=== PATIENT | female | born 2005 | race Caucasian/White ===

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

== ENCOUNTER 2024-03-13 18:11 | Outpatient (REF) | payer OTHER, SELFPAY ==
--- OUTSIDE RECORDS SUMMARY | 2024-03-13 18:14 | XMS_ITS | Encounter Summary ---
[place] [address] Care Team Providers Care Fisher Trap Name Role Phone Unknown Primary Care Provider Unavailabl e Encounter Details Date Type Department Care Team (Late st Contact Info) Description 02/17/2022 Notes [place] [id number] Edward Begum, RN Social History Tobacco Use Types Packs/Day Years Used Date Smoking Tobacco: Never Smokeless Tobacco: Never Comments:NO SMOKERS IN THE H OME Sex and Gender Information Value Date Recorded Sex Assigned at Female 02/08/2023 12:59 PM EST Gender Identity Female 02/08/2023 12:59 PM EST Sexual Orientation Straight 02/08/2023 12 :59 PM EST documented as of this encounter Progress Notes * Edward Begum, RN - 02/17/2022 7:57 AM EST Gutierrezo report available and printed from [facility] documented in this encounter Plan of Treatment Not on file documented as of this encounter Visit Diagnoses Not on filedocumented in this encounter Care Teams Fisher Trap Relationship Specialty Start Date End Date Unknown None PCP - General 06/21/21 10/10/22 documented as of this encounter
--- OUTSIDE RECORDS SUMMARY | 2024-03-13 18:14 | XMS_ITS | Encounter Summary ---
[place] [address] Care Team Providers Care Electrician Locomotive Name Role Phone Leonard Green MD, Bong Primary Care Provider [phone] Encounter Details Date Type Department Care Team (Late st Contact Info) Description 06/29/2016 [place] [phone] Social History Tobacco Use Types Packs/Day Years Used Date Smoking Tobacco: Never Comments:NO SMOKERS IN THE H OME Sex and Gender Information Value Date Recorded Sex Assigned at Female 02/08/2023 12:59 PM EST Gender Identity Female 02/08/2023 12:59 PM EST Sexual Orientation Straight 02/08/2023 12 :59 PM EST documented as of this encounter Plan of Treatment Not on file documented as of this encounter Procedures Procedure Name Priority Date/Time Associated Diagnosis Comments ECG SCAN Routine 06/29/2016 ECG SCAN Routine 06/29/2016 documented in this encounter Results * Scan Doc: ECG (06/29/2016) Historical Provider MEDIA MGR SCAN EX T ORDR/RSLT * Scan Doc: ECG (06/29/2016) Historical Provider MEDIA MGR SCAN EX T ORDR/RSLT documented in this encounter Visit Diagnoses Not on filedocumented in this encounter Care Teams Electrician Locomotive Relationship Specialty Start Date [place] [address] PCP - General 12/28/09 10/04/16 documented as of this encounter
--- OUTSIDE RECORDS SUMMARY | 2024-03-13 18:14 | XMS_ITS | Encounter Summary ---
[place] [address] Care Team Providers Care Team Primary Care Physician Name Role Phone Unknown Primary Care Provider Unavailabl e Encounter Details Date Type Department Care Team (Late st Contact Info) Description 01/17/2022 Notes Only [place] [phone] Edward Begum, RN Social History Tobacco Use [...] Progress Notes * Edward Begum, RN - 01/17/2022 10:34 AM EST Rosa Perez is here today for application of a Zio heart monitor. Zio patch was applied to patient while in clinic as per the manufacture's guidelines/instructions after insurance coverage was confirmed. After observing the blinking green light, indicating the unit was operating, I reviewed the use of the Zio patch. The parent/patient was then able to press the event button, parents could verbalize when to be recording events in the diary, and avoiding immersion in water (but showers OK). The parent/patient was instructed to keep the monitor on for the full 14 days and to return it in the shipping box provided. Reasons to call [employer] were reviewed as was their phone number. Explained that the final report would be ready approximately two weeks after it was received at the company. Parent/patient state understanding. Registration completed. documented in this encounter Plan of Treatment Not on file documented as of this encounter Visit Diagnoses Not on filedocumented in this encounter Care Teams Team Primary Care Physician Relationship Specialty Start Date End Date Unknown None PCP - General 06/21/21 10/10/22 documented as of this encounter
--- OUTSIDE RECORDS SUMMARY | 2024-03-13 18:14 | XMS_ITS | Encounter Summary ---
Author Organization [facility] Address [address] [place] [address] Care Team Providers Care Charity Fundraiser Name Role Phone Bong Valle MD Primary Care Provider Dennis dia Encounter Details Date Type Department Care Team (Late st Contact Info) Description 06/15/2022 Lab Requisition [facility] Pathology & Laboratory Medicine - [facility] [address], [place] [phone] Outr Resulting Lab, Provider Social History Tobacco Use Types Packs/Day Years Used Date Smoking Tobacco: Never Assessed Comments Unknown Sex and Gender Information Value Date Recorded Sex Assigned at Not on file Legal Sex Female 18:51 EST Gender Identity Not on file Sexual Orientation Not on file documented as of this encounter Plan of Treatment Not on file documented as of this encounter Procedures Procedure Name Priority Date/Time Associated Diagnosis Comments CHLAMYDIA/N. GONORRHOEAE AMPLIFIED NUCLEIC ACID Routine 06/14/2022 15:00 EDT documented in this encounter Results * CHLAMYDIA/N. GONORRHOEAE AMPLIFIED RNA (06/14/2022 15:00 EDT) Neisseria gonorrhoeae Result Negative Negative 06/16/2022 13:20 EDT [facility] Chlamydia trachomatis Result Negative Negative 06/16/2022 13:20 EDT [facility] Urine URINE / Unknown 06/14/2022 1 5:00 EDT 06/15/2022 18:52 EDT Narrative [facility] - 06/16/2022 13:20 EDT A first catch urine specimen is acceptable for detection of Gonorrhea and Chlamydia, but might detect up to 10% fewer infections when compared with vaginal and endocervical swab samples. us Provider Outr Resulting Lab MICROBIOLOGY - GENER AL ORDERABLES Final Result [facility] [address] [place] [id number] documented in this encounter Visit Diagnoses Not on filedocumented in this encounter Care Teams Charity Fundraiser Relationship Specialty Start Date End Date Bong Valle MD PCP - General 02/21/10 documented as of this encounter
--- OUTSIDE RECORDS SUMMARY | 2024-03-13 18:14 | XMS_ITS | Encounter Summary ---
Author Organization [facility] [place] [address] Care Team Providers Care Scaffolder Name Role Phone Leonard Green MD, Brando Primary Care Provider [phone] Reason for Visit * Reason Comments Tachycardia * Consultation (Routine) - Closed Specialty Diagnoses / Procedures Referred By Irene dunbar Referred To Contact Pediatric Cardiology Diagnoses INTERMITTENT SYMPTOMATIC TACHYCARDIA Zeenat Hernandez MD [address] [place] [phone] [facility] Pedi Cardiology [address] [place] [phone] Referral ID Status Reason Start Date Expiration Date V isits Requested Visits Authorized [id number] Closed Consult, [facility] 10/05/2015 10/04/2016 1 1 Encounter Details Date Type Department Care Team (Late st Contact Info) Description 10/19/2015 9:30 AM EDT Office Visit [place] [phone] Chris Buchanan MD Tachycardia; Palpitations Social History Tobacco Use Types Packs/Day Years Used Date Smoking Tobacco: Never Comments:NO SMOKERS IN THE H OME Sex and Gender Information Value Date Recorded Sex Assigned at Female 02/08/2023 12:59 PM EST Gender Identity Female 02/08/2023 12:59 PM EST Sexual Orientation Straight 02/08/2023 12 :59 PM EST documented as of this encounter Last Filed Vital Signs Vital Sign Reading Time Taken Comments Blood Pressure 115/46 10/19/2015 9:56 AM EDT Pulse 77 10/19/2015 9:48 AM EDT Temperature - - Respiratory Rate - - Oxygen Saturation 100% 10/19/2015 9:48 AM EDT Inhaled Oxygen Concentration - - Weight 67.4 kg (148 lb 9.4 oz) 10/19/2015 9:48 A M EDT Height 160.3 cm (5' 3.11) 10/19/2015 9:48 AM ED T Body Mass Index 26.23 10/19/2015 9:48 AM EDT Body Mass Index Percentile 96.83% 10/19/2015 9:4 8 AM EDT Growth Chart: [facility] (Girls, 2- 20 Years) documented in this encounter Patient Instructions * Patient Instructions* Chris Buchanan MD - 10/19/2015 9:30 AM EDT Rosa appears normal from the cardiovascular standpoint with no evidence for heart disease. The electrocardiogram today is normal and is reassuring Palpitations are a common symptom, and most often are due to feeling a normal heart that may be beating harder or more rapidly than expected. The purpose of the evaluation today was to determine if Rosa's palpitations are from a normal or an abnormal rhythm. By far the most common abnormal fast rhythm in children is supraventricular tachycardia (SVT). Fortunately this arrhythmia, even when present, is not a dangerous problem. With no evidence for underlying heart disease, any other arrhythmia would not be expected. I cannot completely rule out the possibility that she is having episodes of SVT, and some aspects of the history do suggest SVT. Althoughrecording Rosa's rhythm during an episode of palpitations would be informative, it would not likely change the medical management. Even if SVT were documented I would not recommend medical therapy for these infrequent and self-limiting episodes of tachycardia. Given the infrequent occurrence of pa lpitations, an attempt to record the rhythm when symptomatic would not likely be useful. Additional evaluation would be warranted if Rosa develops syncope or more frequent, prolonged or bothersome episodes of palpitations. documented in this encounter Progress Notes * Chris Buchanan MD - 10/19/2015 9:30 AM EDT Images from the original note were not included. Patient: Primary Care Provider: Requesting Provider: Rosa Perez [address] [place] [phone] BRANDO FAULKNER MD (Inactive) [address] [place] [address] Zeenat Hernandez Md [address] [place] [address] (home) : 2005 Age/Gender: 9 y.o. female Rosa Perez ( 2005) was seen in the Pediatric Cardiology Clinic at [facility] on 10/19/2015 at the request of BRANDO FAULKNER MD (Inactive) for evaluation of palpitations. Records were obtained and personally reviewed before the visit, and my summary is below. Patient Active Problem List Diagnosis ??? Palpitations Summer 2014: [place] On [place] ride c/o 'not feeling well'. Heart started pounding and 'felt weird'. Treied with rest, shade and water. Heart rate gradually slowed lasting ~ 1 hour. 04/2015: supine in bed watching brother play Wii. C/o 'forceful heart beat' (trevon on phone showed heart rate = 171, 126 at rest). Treated with rest and water. Lasted ~30 minutes. ??? FHx: thyroid disease Mother ??? Injury of finger of right hand ??? Constipation ??? Urinary tract infection HPI: Rosa began to complain of palpitations about one year ago. The palpitations occur sporadically, unassociated with exercise, and last variably from 5 minute(s) to as long as an hour. The most recent episode occurred 3 weeks ago, that last one before that was in June. Rosa complains both of arapid and forceful heartbeat and suggests that these episodes slow gradually. Rosa has had a total of 4 episodes of palpitations since this began. Rosa's mother has checked the heart rate with a phone trevon during an episode and reports that it was 206, and then slowed to 190 for several more minutes. There are no other associated symptoms. Rosa does not appear to be pale or in any distress at these times. Past Medical History: Tonsillectomy and adenoidectomy in 2009. ROS: Negative for constitutional, respiratory, gastrointestinal, neurologic, endocrine, hematologic, immunologic, urinary, dermatologic, or musculoskeletal symptoms. Family Hx: The family history is non-contributory. There is no history of syncope, arrhythmia, cardiomyopathies, pacemakers or sudden Social Hx: Rosa is in the fifth grade and plays basketball and participates in [employer]. Meds: No current outpatient prescriptions on file prior to visit. No current facility-administered medications on file prior to visit. Physical Exam: Vitals: 10/19/15 0948 10/19/15 0954 10/19/15 0955 10/19/15 0956 BP: (!) 118/69 111/56 (!) 120/41 115/46 BP Location (NBP): Right arm Left arm Right leg Left leg Patient Position: Lying Lying Lying Lying BP Cuff Sizes: Adult (25-34 cm) Adult (25-34 cm) Large Adult (32-43 cm) Large Adult (32-43 cm) Pulse: 77 SpO2: 100% Weight: (!) 67.4 kg (148 lb 9.4 oz) Height: (!) 160.3 cm (5' 3.11) >99 %ile based on CDC 2-20 Years [id number] data using vitals from 10/19/2015. 99 %ile based on CDC 2-20 Years [id number] data using vitals from 10/19/2015. Rosa is a very pleasant, healthy- appearing, overweight girl in no distress. HEENT: There are no dysmorphic facial features, the mucosa is pink and moist, sclera are not injected, gaze is conjugate CV: Regular rate and rhythm. Normal precordial activity.Normal first and second heart sounds. No murmur noted in systole or diastole in the supine, sitting or standing position. No click, gallop or rub. Resp: lungs are clear to auscultation with equal breath sounds bilaterally. Abd: soft and the liver is not enlarged. Extr: normal brachial and femoral pulses. No clubbing or cyanosis, moves all extremities normally Neuro: non-focal with normal tone. Skin: acyanotic, without peripheral edema ECG: An electrocardiogram obtained today was personally reviewed and is normal. An electrocardiogram obtained previously was personally reviewed and is normal Assessment: Patient Instructions Rosa appears normal from the cardiovascular standpoint with no evidence for heart disease. The electrocardiogram today is normal and is reassuring Palpitations are a common symptom, and most often are due to feeling a normal heart that may be beating harder or more rapidly than expected. The purpose of the evaluation today was to determine if Rosa's palpitations are from a normal or an abnormal rhythm. By far the most common abnormal fast rhythm in children is supraventricular tachycardia (SVT). Fortunately this arrhythmia, even when present, is not a dangerous problem. With no evidence for underlying heart disease, any other arrhythmia would not be expected. I cannot completely rule out the possibility that she is having episodes of SVT, and some aspects of the history do suggest SVT. Althoughrecording Rsoa's rhythm during an episode of palpitations would be informative, it would not likely change the medical management. Even if SVT were documented I would not recommend medical therapy for these infrequent and self-limiting episodes of tachycardia. Given the infrequent occurrence of pa lpitations, an attempt to record the rhythm when symptomatic would not likely be useful. Additional evaluation would be warranted if Rosa develops syncope or more frequent, prolonged or bothersome episodes of palpitations. Recommendations: I have recommended no further evaluation or follow up at this time. Additional evaluation would be warranted if Rosa develops syncope or more frequent, prolonged or bothersome episodes of palpitations. There is no indication for any limitations or restrictions in Rosa's activity. Based on the guidelines published by the [employer] [Circulation 2007;115(16), 1736-54.] SBE precautions are not indicated. Follow-up: none planned documented in this encounter Plan of Treatment Not on file documented as of this encounter Procedures Procedure Name Priority Date/Time Associated Diagnosis Comments EKG 12-LEAD Routine 10/19/2015 9:49 AM EDT Tachycardia documented in this encounter Results * EKG 12 Lead (10/19/2015 9:49 AM EDT) Ventricular rate 95 BPM MUSE SYSTEM Atrial Rate 95 BPM MUSE SYSTEM P-R Interval 124 ms MUSE SYSTEM QRS Duration 90 ms MUSE SYSTEM Q-T Interval 360 ms MUSE SYSTEM QTC Calculated (Bezet) 452 ms MUSE SYSTEM Calculated P Bul[place] 57 degrees MUSE SYSTEM Calculated R [place] 70 degrees MUSE SYSTEM Calculated T [place] 34 degrees MUSE SYSTEM INTERPRETATION * Pediatric ECG Analysis * Normal sinus rhythm Borderline Prolonged QT No previous ECGs available Confirmed by MD POLO, CHRIS ([id number]) on 10/20/2015 3:20:09 PM MUSE SYSTEM 10/19/2015 9:49 AM EDT 10/20/2015 3:20 PM EDT Chris Buchanan MD ECG ORDERABLES MUSE SYSTEM documented in this encounter Visit Diagnoses Diagnosis Tachycardia Tachycardia, unspecified Palpitations documented in this encounter Care Teams Scaffolder Relationship Specialty Start Date End Date Brando [place] [address] PCP - General 12/28/09 10/04/16 documented as of this encounter
--- OUTSIDE RECORDS SUMMARY | 2024-03-13 18:14 | XMS_ITS | Encounter Summary ---
Author Organization [facility] Address [address] [place] [address] Care Team Providers Care Voice Coach Name Role Phone Bong Valle MD Primary Care Provider Dennis dia Encounter Details Date Type Department Care Team (Late st Contact Info) Description 03/09/2023 Lab Requisition [facility] Pathology & Laboratory Medicine - [address] [phone] Outr Resulting Lab, Provider Social History Tobacco [...] Procedure Name Priority Date/Time Associated Diagnosis Comments SYPHILIS SEROLOGY Routine 03/08/2023 14: 50 EST HEPATITIS C AB W REFLEX TO HCV RNA BY PCR Routine 03/08/2023 14:50 EST documented in this encounter Results * SYPHILIS SEROLOGY (03/08/2023 14:50 EST) Syphilis Serology Negative Negative 03/12/2023 11:48 EST [facility] Blood VENOUS BLOOD / Unknown 03/08/2023 14:50 EST 03/09/2023 17:09 EST us Provider Outr Resulting Lab IMMUNOLOGY AND SEROL OGY ORDERABLES Final Result [facility] [address] [place] [address] * HEPATITIS C AB W REFLEX TO HCV RNA BY PCR (03/08/2023 14:50 EST) Hep C Antibody Negative Negative 03/09/2023 19:08 EST [facility] Blood VENOUS BLOOD / Unknown 03/08/2023 14:50 EST 03/09/2023 17:09 EST us Provider Outr Resulting Lab CHEMISTRY & BLOOD GA S ORDERABLES Final Result [facility] [address] [place] [address] documented in this encounter Visit Diagnoses Not on filedocumented in this encounter Care Teams Voice Coach Relationship Specialty Start Date End Date Bong Valle MD PCP - General 02/21/10 documented as of this encounter
--- OUTSIDE RECORDS SUMMARY | 2024-03-13 18:14 | XMS_ITS | Encounter Summary ---
Author Organization [facility] Address [facility] [place] [address] Care Team Providers Care Personal Lines Insurance Advisor Name Role Phone Unknown Primary Care Provider Unavailabl e Encounter Details Date Type Department Care Team (Latest Contact Info) Description 01/17/2022 Travel Social History Tobacco Use Types Packs/Day Years [...] on filedocumented in this encounter Care Teams Personal Lines Insurance Advisor Relationship Specialty Start Date End Date Unknown None PCP - General 06/21/21 10/10/22 documented as of this encounter
--- OUTSIDE RECORDS SUMMARY | 2024-03-13 18:14 | XMS_ITS | Encounter Summary ---
Author Organization [facility] Address [address] [place] [address] Care Team Providers Care Labor Contract Analyst Name Role Phone Bong Valle MD Primary Care Provider Dennis dia Encounter Details Date Type Department Care Team (Late st Contact Info) Description 03/29/2022 Lab Requisition [facility] Pathology & Laboratory Medicine - [facility] [address], [place] [id number] Outr Resulting Lab, Provider Social History Tobacco [...] Comments CHLAMYDIA/N. GONORRHOEAE AMPLIFIED NUCLEIC ACID Routine 03/28/2022 15:30 EST documented in this encounter Results * (ABNORMAL) CHLAMYDIA/N. GONORRHOEAE AMPLIFIED RNA (03/28/2022 15:30 EST) Neisseria gonorrhoeae Result Positive(A) Negative 03/30/2022 13:33 EST [facility] Chlamydia trachomatis Result Negative Negative 03/30/2022 13:33 EST [facility] Urine URINE / Unknown 03/28/2022 1 5:30 EST 03/29/2022 18:50 EST Narrative [facility] - 03/30/2022 13:33 EST A first catch urine specimen is acceptable for detection of Gonorrhea and Chlamydia, but might detect up to 10% fewer infections when compared with vaginal and endocervical swab samples. us Provider Outr Resulting Lab MICROBIOLOGY - GENER AL ORDERABLES Final Result [facility] [address] [place] [id number] documented in this encounter Visit Diagnoses Not on filedocumented in this encounter Care Teams Labor Contract Analyst Relationship Specialty Start Date End Date Bong Valle MD PCP - General 02/21/10 documented as of this encounter
--- OUTSIDE RECORDS SUMMARY | 2024-03-13 18:14 | XMS_ITS | Encounter Summary ---
Author Organization [facility] Address [facility] [place] [address] Care Team Providers Care Support Representative Name Role Phone Leda Flores APRN Primary Care Provider [phone] Reason for Visit * Reason Comments Post Op Encounter Details Date Type Department Care Team (Late st Contact Info) Description 09/12/2023 11:40 AM EDT Office Visit Obstetrics [place] [address] Sarah Dowling MD [facility] [address] OBSTETRICS [place] [address] Endometriosis (Primary Dx); Chronic pelvic pain in female; Dysmenorrhea in adolescent Social History Tobacco Use Types Packs/Day Years Used Date Smoking Tobacco: Never Smokeless Tobacco: Never Comments:NO SMOKERS IN THE H OME Alcohol Use Standard Drinks/Week Comments Not Currently 0 (1 standard drink = 0.6 oz pur e alcohol) IPV Inpatient Questions Answer Date Recorded Does Anyone Try to Keep You From Having Contact with Others or Doing Things Outside Your Home? no 08/21/2023 Feels Threatened by Someone no 08/05 Feels Unsafe at Home or Work/School no 08/21/2023 Physical Signs of Abuse Present no 08/21/2023 Sex and Gender Information Value Date Recorded Sex Assigned at Female 02/08/2023 12:59 PM EST Gender Identity Female 02/08/2023 12:59 PM EST Sexual Orientation Straight 02/08/2023 12 :59 PM EST documented as of this encounter Last Filed Vital Signs Vital Sign Reading Time Taken Comments Blood Pressure 98/50 09/12/2023 11:30 AM EDT Pulse - - Temperature - - Respiratory Rate - - Oxygen Saturation - - Inhaled Oxygen Concentration - - Weight - - Height - - Body Mass Index - - documented in this encounter Progress Notes * Sarah Dowling MD - 09/12/2023 11:40 AM EDT Obgyn Post-Op Clinic Visit Subjective: Rosa Perez is a 17 y.o. premenopausal woman presenting for postop follow-up 3 weeks s/p diagnostic laparoscopy and peritoneal biopsy for chronic pelvic pain, dysmenorrhea and endometriosis. Since the surgery, she has been feeling well. Had one period which wasn't quite as heavy or painfulas normal. Otherwise minimal post-op pain. No bowel or bladder complaints. Surgical pathology: A - Peritoneum (biopsy): - Fibroconnective tissue with Mullerian-type glands, stromal cells and thermal artifact, see discussion. Electronically signed by: Fior Zaragoza MD Verified: 08/24/2023 12:54 Pathologist Performed at: -[facility] [place], [place] [address] Milk Inspector: Alondra Lopez MD, AP, [facility] Certificate: [id number] DISCUSSION Significant thermal artifact is present; however, sections show few Mullerian glands (PAX8+) surrounded by CD10+ stromal cells, compatible with endometriosis in the correct clinical context. Medical history reviewed. Medications and allergies reviewed with pt. Review of Systems: Negative except per HPI Objective: BP 98/50 LMP 08/02/2023 (Exact Date) There is no height or weight on file to calculate BMI. Constitutional: Pleasant and conversant, appears well, presents with her mom Gastrointestinal: Soft, nontender, nondistended, no RT or guarding Incisions: well-healed, intact Neuro/Psychiatric: A&Ox3, appropriate affect Assessment/Plan: Rosa Perez is a 17 y.o. premenopausal woman presenting for postop follow-up 3 weeks s/p diagnostic laparoscopy and peritoneal biopsies, recovering well. - Surgical pathology reviewed. Discussed that the biopsies and surgical findings did confirm that she has endometriosis. Reviewed the need for chronic hormonal suppression and discussed options: OCP's, patch, nuvaring, POP's, depo, nexplanon, GNRH agonists/antagonists. She has tried OCP's in the past and had daily bleeding. Tried depo and a nexplanon as well which were not effective. At this point would like to try POP's, will send rx for slynd as she needs contraception and has already tried OCP's, depo and nexplanon. Rx sent. - Follow-up in clinic in January. 1. Endometriosis 2. Chronic pelvic pain in female 3. Dysmenorrhea in adolescent Sarah Dowling MD documented in this encounter Plan of Treatment Not on file documented as of this encounter Visit Diagnoses Diagnosis Endometriosis- Primary Endometriosis, site unspecified Chronic pelvic pain in female Unspecified symptom associated with female genital organs Dysmenorrhea in adolescent documented in this encounter Care Teams Support Representative Relationship Specialty Start Date End Date [place] [address] PCP - General Family Medicine 10/11/22 documented as of this encounter
--- OUTSIDE RECORDS SUMMARY | 2024-03-13 18:14 | XMS_ITS | Encounter Summary ---
[place] [address] Care Team Providers Care Beauty Counselor Name Role Phone Leonard Green MD, Bong Primary Care Provider [phone] Reason for Visit * Reason Comments Other SVT Encounter Details Date Type Department Care Team (Late st Contact Info) Description 06/30/2016 11:30 AM EDT Office [place] [address] Chris Cuellar MD SVT (supraventricular tachycardia) Social History Tobacco Use Types Packs/Day Years [...] Sign Reading Time Taken Comments Blood Pressure 114/55 06/30/2016 11:30 AM EDT Pulse 77 06/30/2016 11:30 AM EDT Temperature - - Respiratory Rate 22 06/30/2016 11:30 AM EDT Oxygen Saturation 100% 06/30/2016 11:30 AM EDT Inhaled Oxygen Concentration - - Weight 70 kg (154 lb 5.2 oz) 06/30/2016 11:30 AM EDT Height 163.9 cm (5' 4.53) 06/30/2016 11:30 AM E DT Body Mass Index 26.06 06/30/2016 11:30 AM EDT Body Mass Index Percentile 96.03% 06/30/2016 11: 30 AM EDT Growth Chart: [facility] (Girls, 2- 20 Years) documented in this encounter Patient Instructions * Patient Instructions* Chris Cuellar MD - 06/30/2016 11:30 AM EDT Supraventricular tachycardia (SVT) is a category of many arrhythmias originating from a location above the ventricular level. It is, by far, the most common class of clinically significant arrhythmias in otherwise healthy/normal pediatric patients. We discussed that SVT, while it can be a bothersome arrhythmia is not a dangerous or life-threatening problem. I ignacia pictures of the anatomy for the family and discussed the likely mechanism(s) of SVT in this case. I reviewed the various options available, with the pros and cons of each, including: ?? Continued observation (including possible ambulatory EKG monitoring). ?? Vagal maneuvers that can terminate episodes of SVT. ?? Initiation of an antiarrhythmic medications. For most SVTs, beta blockers are the first line therapy, which have the best safety profile. ?? Scheduled daily prophylactic medication to try to prevent most, if not all, episodes of SVT. ?? As needed periodic use of medication to help terminate sustained episodes of SVT that do not respond to vagal maneuvers. ?? Additional electrophysiology (EP) studies and catheter ablation, to eliminate the substrate for recurrent SVT. For recurrent SVT: ?? Most kids tolerate SVT without any significant issues or instability. ?? If she appears stable Rosa should try vagal maneuvers first. ?? She should take a dose of propranolol if she has a sustained episode of SVT lasting more than 10min that does not stop with vagal maneuvers. ?? Vagal maneuvers should be tried again at least 20 minutes after taking propranolol. ?? If vagal maneuvers are again not effective, Rosa should call the pediatric orthodontist on air personality for additional recommendations. ?? If Rosa at any time appears unstable, or about to become unstable, 911 should be called immediately and vagal maneuvers should be repeated until the SVT terminates or emergency assistance arrives. documented in this encounter Progress Notes * Chris Cuellar MD - 06/30/2016 11:30 AM EDT Images from the original note were not included. Patient: Primary Care Provider: Requesting Provider: Rosa Perez [address] [place] [address] Bong Green MD (Inactive) [address] [place] [address] Bong Valle Md [address] [place] [address] (home) : 2005 Age/Gender: 10 y.o. female Rosa is a 10 y.o. old ( 2005) child seen in the Pediatric Cardiology Clinic at [facility] on 06/30/2016 with the following problems: Patient Active Problem List Diagnosis ??? Palpitations [...] Treated with rest and water. Lasted ~30 minutes 06-29-16 palpitations while throwing a foot ball. School nurse who noted a heart rate in the 190s 06-29-16 EKGs: narrow complex tachycardia at 181 and 193 bpm with no clearly identifiable P-waves (scanned) 06-29-16 ER EVAL: Heart rates = 190 - 200bpm. No change with vagal maneuvers. Adenosine administeredwith abrupt break to sinus rhythm. Follow-up EKG with sinus rhythm = ~100 bpm. Duration: 60 minutes, and was hemodynamically well tolerated ??? SVT (supraventricular tachycardia) ??? FHx: thyroid disease Mother ??? Injury of finger of right hand ??? Constipation ??? Urinary tract infection Interim History: Rosa had an episode of palpitations yesterday that began at school while she was playing outside.She states that this started off just like her other episodes, but then continued for much longer. She went to the school nurse where her heart rate was noted to be between 170 and 190. She was then brought to the [facility] ED where an ECG demonstrated narrow complex tachycardia at a rate near 160. Vagal maneuvers were not effective, and she was then given adenosine which converted the rhythm to sinus. Her last episode of SVT was 3 weeks ago. She has had infrequent episodes of palpitations since her visit here about 8 months ago, only every 4-5 months. All of the prior episodes have been fairly brief, lasting less than 10 minutes. Rosa reports no associated symptoms of chest pain, dyspnea or dizziness. Rosa has otherwise been a healthy child since the last visit with no symptoms referable to the cardiovascular system. Rosa has had no complaints of chest pain, dyspnea, fatigue and syncope. She has a normal exercise tolerance with no difficulty keeping up with her peers. She ran a 5K race last week. Review of Systems: Negative for constitutional, respiratory, gastrointestinal, neurologic, endocrine, hematologic, immunologic, urinary, dermatologic, or musculoskeletal symptoms. Social History: Rosa is here today with her parents. Medications: No current outpatient prescriptions on file. No current facility-administered medications for this visit. Physical Exam: Vitals: 06/30/16 1130 BP: 114/55 BP Location (NBP): Right arm Pulse: 77 Resp: 22 SpO2: 100% Weight: (!) 70 kg (154 lb 5.2 oz) Height: (!) 163.9 cm (5' 4.53) 99 %ile based on [facility] 2-20 Years heomhv-tfg-[id number] data using vitals from 06/30/2016. 98 %ile based on [facility] 2-20 Years [id number] data using vitals from 06/30/2016. Body mass index is 26.06 kg/(m^2). Rosa is a very pleasant, healthy- appearing, girl in no distress. HEENT: No dysmorphic facial features; mucosa is pink and moist; sclera are not injected, gaze is conjugate Chest: Unlabored effort; clear to auscultation bilaterally; equal breath sounds. Cardiovascular: Regular rate and rhythm. Normal precordial activity. S1 normal. S2 normal. No systolic or diastolic murmur. No click, gallop or rub Abdomen: Soft. Non-tender and non-distended. No hepatosplenomegaly. Extremities: No deformities. Brachial and femoral pulses normal and non- discrepant. No clubbing, cyanosis or edema Neurological: Normal tone, strength, and response to tactile stimuli Skin: Normal appearance and turgor ECG: The electrocardiogram tracing obtained yesterday was personally reviewed and is normal. 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 Patient Instructions Supraventricular tachycardia (SVT) is a category of many arrhythmias originating from a location above the ventricular level. It is, by far, the most common class of clinically significant arrhythmias in otherwise healthy/normal pediatric patients. We discussed that SVT, while it can be a bothersome arrhythmia is not a dangerous or life-threatening problem. I ignacia pictures of the anatomy for the family and discussed the likely mechanism(s) of SVT in this case. I reviewed the various options available, with the pros and cons of each, including: ?? Continued observation (including possible ambulatory EKG monitoring). ?? Vagal maneuvers that can terminate episodes of SVT. ?? Initiation of an antiarrhythmic medications. For most SVTs, beta blockers are the first line therapy, which have the best safety profile. ?? Scheduled daily prophylactic medication to try to prevent most, if not all, episodes of SVT. ?? As needed periodic use of medication to help terminate sustained episodes of SVT that do not respond to vagal maneuvers. ?? Additional electrophysiology (EP) studies and catheter ablation, to eliminate the substrate for recurrent SVT. For recurrent SVT: ?? Most kids tolerate SVT without any significant issues or instability. ?? If she appears stable Rosa should try vagal maneuvers first. ?? She should take a dose of propranolol if she has a sustained episode of SVT lasting more than 10min that does not stop with vagal maneuvers. ?? Vagal maneuvers should be tried again at least 20 minutes after taking propranolol. ?? If vagal maneuvers are again not effective, Rosa should call the pediatric orthodontist on air personality for additional recommendations. ?? If Rosa at any time appears unstable, or about to become unstable, 911 should be called immediately and vagal maneuvers should be repeated until the SVT terminates or emergency assistance arrives. Recommendations: No further evaluation at this time. Propranolol 40 mg po PRN No limitations or restrictions in Rosa's activity. SBE precautions are not indicated based on [place] [employer] guidelines. Follow-up: 6 months with echocardiogram at that time. documented in this encounter Miscellaneous Notes * Addendum Note - Chris Cuellar MD - 06/30/2016 4:58 PM EDTAddended by: CHRIS CUELLAR on: 06/30/2016 04:58 PM Modules accepted: Orders documented in this encounter Plan of Treatment Not on file documented as of this encounter Procedures Procedure Name Priority Date/Time Associated Diagnosis Comments VENEER GLUE JOINTER FEEDBACK SCAN 07/24/2016 12:00 AM EDT ZIOPATCH Routine 07/14/2016 5:13 PM EDT SVT (supraventricular tachycardia) documented in this encounter Results * SCAN DOC: VENEER GLUE JOINTER FEEDBACK (07/24/2016 12:00 AM EDT) Anatomical Region Laterality Modality Other Narrative 07/24/2016 12:00 AM EDT Ordered by an unspecified provider. Scanning Provider MEDIA MGR SCAN EXT O RDR/RSLT * Ziopatch (07/14/2016 5:13 PM EDT) Anatomical Region Laterality Modality Other Narrative 07/16/2016 9:26 PM EDT Zio Holter Report Patient Rosa Perez ? Date of Study 06/30 - 07/05/2016 1) There is sinus rhythm throughout the recording with appropriate rate variation. Minimum HR is 55, mean HR is 97, maximum HR is 171. 2) There is rare supraventricular ectopy recorded, all of which are isolated premature atrial beats. There are no supraventricular couplets recorded. There are no runs of supraventricular tachycardia. ?? 3) There is no ventricular ectopy recorded. 4) There is no AV conduction disturbance recorded. 5) ??No symptoms were reported. There were 5 patient triggered events. There was no change in the patient? s rate or rhythm at the time of the triggered events. Summary: Normal Zio recording shows no change in the patient? s rate or rhythm at the time of the triggered events. Reading MD: Chris Cuellar M.D. Chris Cuellar MD CARDIAC SERVICES ORD ERABLES documented in this encounter Visit Diagnoses Diagnosis SVT (supraventricular tachycardia) Other specified cardiac dysrhythmias documented in this encounter Care Teams Beauty Counselor Relationship Specialty Start Date End Date Bong Valle MD [address] [place] [address] [place] [address] PCP - General 12/28/09 10/04/16 documented as of this encounter
--- OUTSIDE RECORDS SUMMARY | 2024-03-13 18:14 | XMS_ITS | Encounter Summary ---
Author Organization [facility] Address [address] [place] [address] Care Team Providers Care Silver Steward Name Role Phone Unknown, Provider Primary Care Provider Unava ilable Encounter Details Date Type Department Care Team (Late st Contact Info) Description 02/17/2010 Results Only [facility] [place] [phone] Fernie Barlow, [address] [place], [place] [id number] Social History Tobacco Use Types Packs/Day Years [...] Procedure Name Priority Date/Time Associated Diagnosis Comments SURGICAL PATHOLOGY Routine 02/17/2010 0:00 EST documented in this encounter Results * SURGICAL PATHOLOGY (02/17/2010 0:00 EST) Pathology Report: SURGICAL PATHOLOGY REPORT ? Reports generated via electronic interface contain original data; ? however they are lacking the format of the original report. ? Caution should be taken when reading/interpreti ng unformatted reports. ? Name: ? BYNUM, CHAD ? Accession #: ? [id number] ? : ? 2005 (Age: 4) ??F ? Collect Date: ? 02/17/2010 ? Location: ? [facility] ? Receive Date: ? 02/17/2010 ? Provider: FERNIE M BARLOW DO ? Copy to: ? Final Pathologic Diagnosis: ? A. ?Tonsil, right, tonsillectomy: ? 1. ?Lymphoid tissue grossly consistent with tonsil. Gross only. ? B. ?? Tonsil, left, tonsillectomy: ? 1. ?? Lymphoid tissue grossly consistent with tonsil. ??Gross only. ? C. ?? Adenoids, adenoidectomy: ?1. ?? Lymphoid tissue grossly consistent with adenoids. ??Gross only. ? Document reviewed and electronically signed by: ? Sergey Holliday, MD ? Report ??Date: 02/21/2010 16:27 ? By the signature above, the attending physician certifies that he/she has ? personally conducted a gross and/or microscopic examination of the described ? specimens and rendered or confirmed the above diagnosis. ? Specimen(s) Received: ? A. ?R tonsil ? B. ? L tonsil ? C. ? Adenoids ? Clinical History: ? Sleep disordered breathing, chronic T&A ? Gross Description: ? Received in formalin labelled Bynum, Chad and right tonsil is a ? lamb-pink, ovoid, unoriented soft tissue measuring 3.0 x 1.5 x 1.3 cm and is ? partially surfaced by lmab, smooth to wrinkled mucosa. ??The cut surfaces are ? lamb-pink with a crypt-like architecture. ??No discrete nodules present. ??No ? sections submitted. Gross only. ? Received in formalin labelled Ana, Chad and left tonsil is a partially fragmented lamb-pink, ovoid soft tissue which is received in two pieces and ? measures 2.8 x 1.7 x 1.3 cm in aggregate. ??The largest tissue is surfaced by a ?? lamb and glistening mucosa. ??The cut surfaces are lamb-pink with a crypt-like ? architecture. ??The smaller portion is lamb-pink and has a moderate amount of ? cautery artifact. ??No sections submitted. Gross only. ? Received in formalin labelled Ana, Chad and adenoids are multiple ? lamb-brown, irregular soft tissue fragments measuring 2.5 x 2.0 x 0.3 cm in ? aggregate. ??No discrete nodules present. ??No sections submitted. Gross only. ? (Arielle Gallardo)/mpl ? End of Report ? [facility]AND[facility] 02/17/2010 02/17/2010 19: 18 EST us Fernie Barlow DO PATHOLOGY ORDERABLES Fi nal Result [facility] [address] [place] [address] documented in this encounter Visit Diagnoses Not on filedocumented in this encounter Care Teams Silver Steward Relationship Specialty Start Date End Date Unknown, Provider, PCP - General 02/17/10 02/20/10 documented as of this encounter
--- OUTSIDE RECORDS SUMMARY | 2024-03-13 18:14 | XMS_ITS | Encounter Summary ---
Author Organization [facility] Address [facility] [place] [address] Care Team Providers Care Circular Gang Saw Operator Name Role Phone Bong Valle MD Primary Care Provider [phone] Reason for Visit * Reason Comments Follow-up * Diagnostic Test (Routine) - Closed Specialty Diagnoses / Procedures Referred By Irene dunbar Referred To Contact Cardiology Diagnoses SVT (supraventricular tachycardia) Procedures Echocardiogram Transthoracic(Leb) Gaston Pisano MD [facility] [place] [address] [facility] [place] [address] Referral ID Status Reason Start Date Expiration Date V isits Requested Visits Authorized [id number] Closed Specialty Service Requested 11/20/2016 11/20/2017 1 1 Encounter Details Date Type Department Care Team (Late st Contact Info) Description 12/08/2016 1:30 PM EDT Office [place] [address] Koko Buchanan MD SVT (supraventricular tachycardia) Social History Tobacco [...] Sign Reading Time Taken Comments Blood Pressure 100/61 12/08/2016 1:10 PM EDT Pulse 88 12/08/2016 1:10 PM EDT Temperature - - Respiratory Rate 20 12/08/2016 1:10 PM EDT Oxygen Saturation 100% 12/08/2016 1:10 PM EDT Inhaled Oxygen Concentration - - Weight 77.3 kg (170 lb 6.4 oz) 12/08/2016 1:10 P M EDT Height 165.4 cm (5' 5.12) 12/08/2016 1:10 PM ED T Body Mass Index 28.25 12/08/2016 1:10 PM EDT Body Mass Index Percentile 97.21% 12/08/2016 1:1 0 PM EDT Growth Chart: [facility] (Girls, 2- 20 Years) documented in this encounter Patient Instructions * Patient Instructions* Koko Buchanan MD - 12/08/2016 1:30 PM EDT Assessment: SVT (supraventricular tachycardia) Rosa is having relatively infrequent palpitations, less often than was occurring around the time of her last visit. I would not recommend medical therapy or invasive intervention for these infrequent and self-limiting episodes of tachycardia. We discussed that it is quite possible that Rosa will have more frequent episodes of SVT as she gets older, and that intervention remains an option if the episodes are sufficiently frequent or o long duration requiring ED management. Recommendations: No further evaluation or intervention at this time. Propranolol 40 mg po PRN No limitations or restrictions in Rosa's activity. SBE precautions are not indicated based on [place] [employer] guidelines. Follow-up: 2 years with electrocardiogram at that time. Sooner PRN for increased symptoms or syncope documented in this encounter Progress Notes * Koko Buchanan MD - 12/08/2016 1:30 PM EDT Images from the original note were not included. Patient: Primary Care Provider: Requesting Provider: Rosa Perez [address] [place] [address] [place] [address] Bong Valle MD [address] [place] [address] Bong Valle Md [address] [place] [address] (home) : 2005 Age/Gender: 11 y.o. female Rosa is a 11 y.o. old ( 2005) child seen in the Pediatric Cardiology Clinic at [facility] on 12/08/2016 with the following problems: Patient Active Problem List Diagnosis ??? AV node reentry tachycardia Summer 2014: [place] On a ride c/o 'not feeling well'. Heart started pounding and 'felt weird'. Treated with rest, shade and water. Heart rate gradually slowed lasting ~ 1 hour. 04/2015: supine in bed watching brother play [employer]. C/o 'forceful heart beat' (trevon on phone [...] 60 minutes, and was hemodynamically well tolerated 06-30-16 CARDIO EVAL: her 06-29-16 episode is most consistent with AV node reentry tachycardia. Prescribed PRN propranolol 06/30 - 07/05/2016 ZIO: normal No SBE precautions. No activity restrictions. Follow up 12/2016 ??? FHx: thyroid disease Mother ??? Injury of finger of right hand ??? Constipation ??? Urinary tract infection Interim History: Rosa has had infrequent episodes of tachycardia since the last visit. She had an episode in September that lasted 10 minutes, and she took a dose of propranolol. The tachycardia then stopped in about 5 minutes. Her mother counted a heart rate of 190 during the episode. She does also report more frequent episodes of palpitations that she describes as lasting only 2 beats. These occur a few times per week. Rosa has otherwise been a healthy child since the last visit with no symptoms referable to the cardiovascular system. Rosa has had no complaints of chest pain, dyspnea, fatigue or syncope. She has a normal exercise tolerance with no difficulty keeping up with her peers. Review of Systems: Negative for constitutional, respiratory, gastrointestinal, neurologic, endocrine, hematologic, immunologic, urinary, dermatologic, or musculoskeletal symptoms. Social History: Rosa is here today with her mother. Medications: Current Outpatient Prescriptions Medication Sig Dispense Refill ??? propranolol (INDERAL) 40 mg Tablet Take 1 tablet by mouth as needed (for tachycardia lasting more than 10 minutes). (Patient not taking: Reported on 12/08/2016) 10 tablet 5 No current facility-administered medications for this visit. Physical Exam: Vitals: 12/08/16 1310 BP: 100/61 BP Location (NBP): Right arm Pulse: 88 Resp: 20 SpO2: 100% Weight: (!) 77.3 kg (170 lb 6.4 oz) Height: 165.4 cm (5' 5.12) >99 %ile based on CDC 2-20 Years [id number] data using vitals from 12/08/2016. 97 %ile based on CDC 2-20 Years [id number] data using vitals from 12/08/2016. Body mass index is 28.25 kg/(m^2). Rosa is a very pleasant, healthy- appearing, young lady in no distress. HEENT: No dysmorphic facial [...] tactile stimuli Skin: Normal appearance and turgor ECHO: 1. Normal exam. 2. No anatomic abnormality was seen with complete standard exam. 3. Left and right ventricular chamber size, wall thickness and systolic performance appear normal. 4. See remainder of report for additional findings. Assessment: SVT (supraventricular tachycardia) Rosa is having relatively infrequent palpitations, less often than was occurring around the time of her last visit. I would not recommend medical therapy or invasive intervention for these infrequent and self-limiting episodes of tachycardia. We discussed that it is quite possible that Rosa will have more frequent episodes of SVT as she gets older, and that intervention remains an option if the episodes are sufficiently frequent or o long duration requiring ED management. Recommendations: No further evaluation or intervention at this time. Propranolol 40 mg po PRN No limitations or restrictions in Rosa's activity. SBE precautions are not indicated based on [place] [employer] guidelines. Follow-up: 2 years with electrocardiogram at that time. Sooner PRN for increased symptoms or syncope documented in this encounter Miscellaneous Notes * Assessment & Plan Note - Koko Buchanan MD - 12/08/2016 5:17 PM EDT Associated Problem(s): SVT (supraventricular tachycardia) Rosa is having relatively infrequent palpitations, less often than was occurring around the time of her last visit. I would not recommend medical therapy or invasive intervention for these infrequent and self-limiting episodes of tachycardia. We discussed that it is quite possible that Rosa will have more frequent episodes of SVT as she gets older, and that intervention remains an option if the episodes are sufficiently frequent or o long duration requiring ED management. documented in this encounter Plan of Treatment Not on file documented as of this encounter Visit Diagnoses Diagnosis SVT (supraventricular tachycardia) Other specified cardiac dysrhythmias documented in this encounter Care Teams Circular Gang Saw Operator Relationship Specialty Start Date End Date Bong Valle MD [address] [place] [place] [address] PCP - General Pediatrics 10/05/16 06/20/21 documented as of this encounter
--- OUTSIDE RECORDS SUMMARY | 2024-03-13 18:14 | XMS_ITS | Encounter Summary ---
Author Organization [facility] [place] [address] Care Team Providers Care Systems Analysis Manager Name Role Phone Leda Flores APRN Primary Care Provider [phone] Reason for Visit * Reason Comments Establish Care * Consultation (Routine) - Closed Specialty Diagnoses / Procedures Referred By Contac t Referred To Contact Obstetrics and Gynecology Diagnoses Menstruation disorder Abnormal uterine and vaginal bleeding, unspecified STEAM CONDITIONER OPERATOR Leda Flores, RESIDENTIAL PROGRAM WORKER [address] [place] [address] [facility] Professor Of Criminal Justice [address] [place] [address] Referral ID Status Reason Start Date Expiration Date V isits Requested Visits Authorized [id number] Closed Consult, Test & Treat PCP Updated and/or Approved 10/11/2022 10/11/2023 6 6 Encounter Details Date Type Department Care Team (Late st Contact Info) Description 02/08/2023 1:00 PM EST Office Visit Obstetrics [place] [address] Anita Mills MD [facility] DR OBSTETRICS & [place] [address] Menorrhagia with irregular cycle Social History Tobacco Use Types Packs/Day Years Used Date Smoking Tobacco: Never Smokeless Tobacco: Never Tobacco Cessation:Counseling Given: Not Answered Comments:NO SMOKERS IN THE HOME Sex and Gender Information Value Date Recorded Sex Assigned at Female 02/08/2023 12:59 PM EST Gender Identity Female 02/08/2023 12:59 PM EST Sexual Orientation Straight 02/08/2023 12 :59 PM EST documented as of this encounter Last Filed Vital Signs Vital Sign Reading Time Taken Comments Blood Pressure 111/75 02/08/2023 12:59 PM EST Pulse - - Temperature - - Respiratory Rate - - Oxygen Saturation - - Inhaled Oxygen Concentration - - Weight 75.3 kg (166 lb) 02/08/2023 12:59 PM EST Height 172.7 cm (5' 8) 02/08/2023 12:59 PM EST Body Mass Index 25.24 02/08/2023 12:59 PM EST Body Mass Index Percentile 82.82% 02/08/2023 12: 59 PM EST Growth Chart: [facility] (Girls, 2- 20 Years) documented in this encounter Progress Notes * Lora Buchanan CCMA - 02/08/2023 1:00 PM EST ____ Patient not reached, will update meds, allergies, tobacco, pharmacy, pain/depression during visit. __x__Patient reached and the following information was reviewed/obtained per protocol: _x__Confirmed patient name and date of __x_Confirmed upcoming appt _x__Reviewed medications, allergies, tobacco, pharmacy, pain/depression Confirmed has completed any pre-visit questionnaires If has not received required previsit questionnaires, send via [facility] Other information or concerns: * Anita Mills MD - 02/08/2023 1:00 PM EST New Patient Visit Rosa Perez [id number] 02/08/2023 Reason for Visit: Rosa is a 17 y.o. G0 female who is being referred by her PCP, Leda Flores APRN for question of endometriosis. Menstrual cycle: LMP 02/06/23. Periods usually come every month lasting 5-8 days. Occasionally they come early or late both during and outside of control adjustments. Moderate to heavy flow, goesthrough 7-8 pads per day, never more than one in an hour. Intense cramps causing her to miss schoolfor 2-3 days. Cramping sometimes starts 3-4 days before starting her period. 11 years old at menarche. She has tried several hormonal methods for regulating her period, but feels there hasn't bee great improvement with any of them. She has previously tried Nexplanon and Depo Provera, both of which caused prolonged heavy spotting. She tried both for about 3 months each. She has also tried OCPS. Despite taking continuous OCPs, she would have a bleed every 4th week that would be magnetic tape winder than a typical period. She did this for several months and discontinued. While off of the pills, her periods weremuch heavier and more painful. She recently restarted them about 2-3 weeks ago. Denies pain with bowel movements. Does state she has abdominal pain at baseline. Stools 3-4 times per week that are sometimes loose and sometimes very firm. Sexually activity: Yes. Feels safe and denies any current concerns. Using OCPs and condoms for control. Positive history of STDs (prior dx of gonorrhea, which was treated. Neg tests since). 3 total sexual partners in last year. Does not desire at this time. OB History No obstetric history on file. Past Medical History: Diagnosis Date Constipation 01/2014 FHx: heart disease MGF stents in late 50s FHx: thyroid disease Mother Injury of finger of right hand Near syncope SVT (supraventricular tachycardia) Urinary tract infection 11/17/2011 Medications: Prn propranolol, Sprintec Past Surgical History: Procedure Laterality Date TONSILLECTOMY AND ADENOIDECTOMY 11/17/2011 Family History Problem Relation Age of Onset Other Other cardiac tumor Social History Socioeconomic History Marital status: Single Spouse name: None Number of children: None Years of education: None Highest education level: None Occupational History None Tobacco Use Smoking status: Never Smokeless tobacco: Never Tobacco comments: NO SMOKERS IN THE HOME Vaping Use Vaping Use: Never used Substance and Sexual Activity Alcohol use: None Drug use: None Sexual activity: None Other Topics Concern None Social History Narrative None Social Determinants of Health Financial Resource Strain: Not on file Food Insecurity: Not on file Transportation Needs: Not on file Physical Activity: Not on file Intimate Partner Violence: Not on file Housing Stability: Not on file has a current medication list which includes the following prescription(s): estarylla and propranolol. Allergies Allergen Reactions Nickel SEVERE RASH AND SWELLING ROS: As per HPI Physical Examination: BP 111/75 Ht 172.7 cm (5' 8) Wt 75.3 kg (166 lb) LMP 01/24/2023 (Approximate) Comment: Pt states she had period about 13 days ago and now has it again. BMI 25.24 kg/m?? Body mass index is 25.24 kg/m??. Constitutional: Pleasant and conversant, appears well, NAD Cardiac: regular rate, well perfused Pulmonary: No increased work of breathing HEENT: normocephalic, atraumatic GI: Non-distended Neuro: no gross neurologic deficit Assessment/Plan: Rosa is an 17 y.o. G0 who presents for evaluation of heavy menses and dysmenorrhea x 4 years. #AUB + Dysmenorrhea 4 years of heavy, painful periods sometimes causing her to miss several days of school, without signs or symptoms of anemia. Patient has tried OCPs which improve her pain, but still has breakthrough bleeding. She has also tried Nexplanon and depo provera for 3 months each, but stopped due to spotting. It does sound as though she got some relief from the pain with these methods, but did not like the bleeding that she continued to have. Discussed the length of time needed to see the effect of many control options on bleeding. She has only tried the Nexplanon and depo provera for a few months each and may not have truly seen the full effect. Discussed retrying depo provera (patient discouraged from Nexplanon as it's bleeding profile is inferior to many other options), but patient wouldlike to stay with OCPs at this time. IUDs also discussed as these can be used in combination with OCPs and do not require daily involvement such as taking a pill. She was tearful at this point in theconversation due to feeling frustrated by all of the options she has had to try. Explained that IUD placement could be done in the office or the OR under sedation. She will consider this, but is not interested at this time. We talked about what her specific goals were regarding her symptoms and that completely stopping bleeding/spotting may not be possible. She agreed that her highest priority was to decrease the discomfort. I Recommended she try scheduled ibuprofen during her periods and try TXA (TID for up to 5 days each month) while bleeding in addition to continuous OCPs. An rx was sent for both the TXA and a new OCP. She will try this for 3 months and follow up at that time to see if any adjustments need to be made or if she would like to consider something like an IUD or depo provera. TSH, coagulopathy panel and CBC ordered. Most common coagulopathy found in adolescent workup for heavy bleeding is Von Willebrand Factor deficiency, but test is best done when patient is off of estrogen for at least 7 days. As she is currently on OCPs, I recommended she get tested if she ever stops taking the pills. - Continuous OCP use - TXA during bleeding (TID up to 5 days per month) - Scheduled ibuprofen with bleeding - CBC, ferritin, coags, fibrinogen, TSH - FU in 3 months # Sexual health and prevention Discussed importance of preventing both undesired pregnancies in addition to STIs and that condoms are the only way to prevent STI spread. Patient understands control options and the risks/benefits of each method. She understands that breathrough bleeding, nausea, and other symptoms associated with control are manageable with a return visit to her physician. The patient was discussed with Dr. Sarah Kirkland, attending physician. Anita Mills MD PGY-1 02/08/2023 * Sarah Kirkland MD - 02/08/2023 1:00 PM EST I have seen the patient in person and reviewed the resident's above history and I agree with the details as written. The assessment and plan were formulated in discussion with me and I agree with them as documented. Sarah Kirkland MD documented in this encounter Miscellaneous Notes * Addendum Note - Sarah Kirkland MD - 02/08/2023 1:00 PM ESTAddended by: SARAH KIRKLAND on: 02/16/2023 10:10 AM Modules accepted: Level of Service documented in this encounter Plan of Treatment Scheduled Orders Name Type Priority Associated Diagnoses Orde r Schedule Fibrinogen Lab Routine Menorrhagia with irregular cycle Expected: 02/08/2023 (Approximate), Expires: 02/08/2024 documented as of this encounter Procedures Procedure Name Priority Date/Time Associated Diagnosis Comments AMB REFERRAL TO OB-STEAM CONDITIONER OPERATOR Routine 02/10/2023 4:56 PM EST Menstruation disorder documented in this encounter Visit Diagnoses Diagnosis Menorrhagia with irregular cycle Excessive or frequent menstruation documented in this encounter Care Teams Systems Analysis Manager Relationship Specialty Start Date End Date Leda Flores, RESIDENTIAL PROGRAM WORKER [place] [place] [address] PCP - General Family Medicine 10/11/22 documented as of this encounter
--- OUTSIDE RECORDS SUMMARY | 2024-03-13 18:14 | XMS_ITS | Encounter Summary ---
[place] [address] Care Team Providers Care Bottling Machine Operator Name Role Phone Leda Flores APRN Primary Care Provider [phone] Reason for Referral * Consultation (Routine) - Closed Specialty Diagnoses / Procedures Referred By Contmoses dunbar Referred To Contact Obstetrics and Gynecology Diagnoses Menstruation disorder Abnormal uterine and vaginal bleeding, unspecified GREETER Leda Flores APRN [address] [address] [facility] Football Pad Repairer [address] [place] [phone] Referral ID Status Reason Start Date Expiration Date V isits Requested Visits Authorized [id number] Closed Consult, Test & Treat PCP Updated and/or Approved 10/11/2022 10/11/2023 6 6 Encounter Details Date Type Department Care Team (Latest Contact Info) Description 10/11/2022 Transcribe Orders eDH Incoming Referrals [phone] Leda Flores APRN [address] [place], [place] [id number] Menstruation disorder Social History Tobacco Use Types Packs/Day Years [...] Date/Time Associated Diagnosis Comments AMB REFERRAL TO OB-GREETER Routine 02/10/2023 4:56 PM EST Menstruation disorder documented in this encounter Results * Referral to Ob-Operational Risk Analyst (02/10/2023 4:56 PM EST) Leda Flores APRN OUTPATIENT REFERRAL ORDERABLES documented in this encounter Visit Diagnoses Diagnosis Menstruation disorder Unspecified disorder of menstruation and other abnormal bleeding from female genital tract documented in this encounter Care Teams Bottling Machine Operator Relationship Specialty Start Date End Date Leda Flores, COLBY [address] [place] [address] PCP - General Family Medicine 10/11/22 documented as of this encounter
--- OUTSIDE RECORDS SUMMARY | 2024-03-13 18:14 | XMS_ITS | Encounter Summary ---
[place] [address] Care Team Providers Care Director Of Career Resources Name Role Phone Bong Valle MD Primary Care Provider [phone] Encounter Details Date Type Department Care Team (Late st Contact Info) Description 12/17/2018 10:30 AM EST Office Visit [place] [address] Koko Cuellar MD SVT (supraventricular tachycardia) Social History [...] Sign Reading Time Taken Comments Blood Pressure 125/60 12/17/2018 10:27 AM EST Pulse 93 12/17/2018 10:27 AM EST Temperature - - Respiratory Rate - - Oxygen Saturation 100% 12/17/2018 10: 27 AM EST Inhaled Oxygen Concentration - - Weight 74.1 kg (163 lb 4.8 oz) 12/18/19 19 10:27 AM EST Height 170.5 cm (5' 7.13) 12/17/2018 1 0:27 AM EST Body Mass Index 25.48 12/17/2018 10:27 AM EST Body Mass Index Percentile 91.94% 12/17 10:27 AM EST Growth Chart: [facility] (Girls, 2- 20 Years) documented in this encounter Patient Instructions * Patient Instructions* Koko Cuellar MD - 12/17/2018 10:30 AM EST Assessment: Rosa continues to have relatively infrequent palpitations, that most likely represent self-limited episodes of supraventricular tachycardia. I would not recommend medical therapy or invasive intervention for these infrequent and self-limiting episodes of SVT. We discussed that it is quite possible that Rosa will have more frequent episodes of SVT as she gets older, and that intervention remains an option if the episodes are sufficiently frequent or o long duration requiring ED management. At this time there is no apparent change that warrants a change in her management. Recommendations: No further evaluation or intervention at this time. Propranolol 40 mg po PRN No limitations or restrictions in Rosa's activity. SBE precautions are not indicated based on [place] [employer] guidelines. Follow-up: 3 years with electrocardiogram at that time. Sooner PRN for increased symptoms or syncope documented in this encounter Progress Notes * Koko Cuellar MD - 12/17/2018 10:30 AM EST Images from the original note were not included. Patient: Primary Care Provider: Requesting Provider: Rosa Perez [address] [place] [id number] Bong Valle MD [address] [place] [address] Bong Valle Md [address] [place] [address] (home) : 2005 Age/Gender: 13 y.o. female Rosa is a 13 y.o. old ( 2005) child seen in the Pediatric Cardiology Clinic at [facility] on 12/17/2018 with the following problems: Patient Active Problem List Diagnosis ??? SVT (supraventricular tachycardia) Summer 2014: [place] [...] PRN propranolol 06/30 - 07/05/2016 ZIO: normal 12-08-16 ECHO: normal 12-18-16 Prescribed PRN propranolol No SBE precautions. No activity restrictions. Follow up 12/2018 ??? FHx: thyroid disease Mother ??? Injury of finger of right hand ??? Constipation ??? Urinary tract infection Interim History: Rosa has had infrequent episodes of tachycardia since the last visit 2 years ago. She has about 2episodes per year. She had one episode during a basketball game, and another at home when not active. Both stopped within 10-15 minutes, without intervention. She has not used propranolol in the lastyear. She reports that a Valsalva maneuver has not worked for her. Rosa also reports occasional episodes of palpitations that she describes as lasting only 2 beats.These occur a few times per week and are associated with her bending over. Rosa has otherwise been a healthy child [...] Rosa is here today with her mother. She is in 8th grade and plays basketball in both winter and summer. Medications: Current Outpatient Medications Medication Sig Dispense Refill ??? propranolol (INDERAL) 40 mg Tablet Take 1 tablet by mouth as needed (for tachycardia lasting more than 10 minutes). (Patient not taking: Reported on 12/08/2016) 10 tablet 5 No current facility-administered medications for this visit. Physical Exam: Vitals: 12/17/18 1027 BP: 125/60 Pulse: 93 SpO2: 100% Weight: 74.1 kg (163 lb 4.8 oz) Height: 170.5 cm (5' 7.13) 96 %ile based on CDC (Girls, 2-20 Years) [id number] data based on Weight recorded on 12/17/2018. 94 %ile based on [facility] (Girls, 2-20 Years) [id number]-som-[id number] data based on Stature recorded on 12/17/2018. Body mass index is 25.48 kg/m??. Rosa is a very pleasant, healthy- appearing, [...] stimuli Skin: Normal appearance and turgor ECG: An electrocardiogram obtained today was personally reviewed and is normal Assessment: Rosa continues to have relatively infrequent palpitations, that most likely represent self-limited episodes of supraventricular tachycardia. I would not recommend medical therapy or invasive intervention for these infrequent and self-limiting episodes of SVT. We discussed that it is quite possible that Rosa will have more frequent episodes of SVT as she gets older, and that intervention remains an option if the episodes are sufficiently frequent or o long duration requiring ED management. At this time there is no apparent change that warrants a change in her management. Recommendations: No further evaluation or intervention at this time. Propranolol 40 mg po PRN No limitations or restrictions in Rosa's activity. SBE precautions are not indicated based on [place] [employer] guidelines. Follow-up: 3 years with electrocardiogram at that time. Sooner PRN for increased symptoms or syncope documented in this encounter Plan of Treatment Not on file documented as of this encounter Procedures Procedure Name Priority Date/Time Associated Diagnosis Comments EKG 12-LEAD Routine 12/17/2018 10:34 AM EST SVT (supraventricular tachycardia) documented in this encounter Results * EKG 12 Lead (12/17/2018 10:34 AM EST) Ventricular rate 103 BPM MUSE SYSTEM Atrial Rate 103 BPM MUSE SYSTEM P-R Interval 122 ms MUSE SYSTEM QRS Duration 100 ms MUSE SYSTEM Q-T Interval 340 ms MUSE SYSTEM QTC Calculated (Bezet) 445 ms MUSE SYSTEM Calculated P Ponce 68 degrees MUSE SYSTEM Calculated R Ponce 74 degrees MUSE SYSTEM Calculated T Ponce 45 degrees MUSE SYSTEM INTERPRETATION * Pediatric ECG Analysis * Normal sinus rhythm Normal ECG When compared with ECG of 19-OCT-2015 09:49, No significant change was found Confirmed by MD CUELLAR NORMAN ([id number]) on 12/17/2018 4:45:00 PM MUSE SYSTEM 12/17/2018 10:3 4 AM EST 12/17/2018 4:45 PM EST Koko Cuellar MD ECG ORDERABLES MUSE SYSTEM documented in this encounter Visit Diagnoses Diagnosis SVT (supraventricular tachycardia) Other specified cardiac dysrhythmias documented in this encounter Care Teams Director Of Career Resources Relationship Specialty Start Date End Date Bong Valle MD [address] [place] [address] PCP - General Pediatrics 10/05/16 06/20/21 documented as of this encounter
--- OUTSIDE RECORDS SUMMARY | 2024-03-13 18:14 | XMS_ITS | Encounter Summary ---
Author Organization [facility] [place] [address] Care Team Providers Care Image Scientist Name Role Phone Leda Flores APRN Primary Care Provider [phone] Encounter Details Date Type Department Care Team (Latest Contact Info) Description 09/12/2023 Travel Social History Tobacco Use Types Packs/Day Years Used Date Smoking Tobacco: Never Smokeless Tobacco: Never Comments:NO SMOKERS IN THE H OME Alcohol Use Standard Drinks/Week Comments Not Currently 0 (1 standard drink = 0.6 oz pur e alcohol) DH IPV Inpatient Questions Answer Date Recorded Does [...] on filedocumented in this encounter Care Teams Image Scientist Relationship Specialty Start Date End Date [place] [address] PCP - General Family Medicine 10/11/22 documented as of this encounter
--- OUTSIDE RECORDS SUMMARY | 2024-03-13 18:14 | XMS_ITS | Clinical Summary ---
Author Organization [facility] Address [address] [place] [id number] Care Team Providers Care Varitypist Name Role Phone Bong Valle MD Primary Care Provider Dennis dia Social History Tobacco Use Types Packs/Day Years Used Date Smoking Tobacco: Never Assessed Comments Unknown Sex and Gender Information Value Date Recorded Sex Assigned at Not on file Legal Sex Female 18:51 EST Gender Identity Not on file Sexual Orientation Not on file Plan of Treatment Health Maintenance Due Date Last Done Comments COVID-19 Vaccine ( season) 2023 Hepatitis B Vaccine (1 of 3 - 19+ 3-dose series) 11/27 Hepatitis C Screen Completed 03/08/2023 Procedures Procedure Name Priority Date/Time Associated Diagnosis Comments HEPATITIS C AB W REFLEX TO HCV RNA BY PCR Routine 03/08/2023 14:50 EST from Last 3 Months or Most Recently Relevant to Health Maintenance Results * HEPATITIS C AB W REFLEX TO HCV RNA BY PCR (03/08/2023 14:50 EST) Hep C Antibody Negative Negative 03/09/2023 19:08 EST [facility] Blood VENOUS BLOOD / Unknown 03/08/2023 14:50 EST 03/09/2023 17:09 EST us Provider Outr Resulting Lab CHEMISTRY & BLOOD GA S ORDERABLES Final Result [facility] [address] [place] [address] from Last 3 Months or Most Recently Relevant to Health Maintenance Care Teams Varitypist Relationship Specialty Start Date End Date Bong Valle MD PCP - General 02/21/10
--- OUTSIDE RECORDS SUMMARY | 2024-03-13 18:14 | XMS_ITS | Encounter Summary ---
Author Organization [facility] [place] [address] Care Team Providers Care Consumer Studies Professor Name Role Phone Unknown Primary Care Provider Unavailabl e Reason for Referral * Diagnostic Test (Routine) - Closed Specialty Diagnoses / Procedures Referred By Contmoses t Referred To Contact Cardiology Diagnoses SVT (supraventricular tachycardia) Procedures Ziopatch 48 Hrs-15 Days Koko Buchanan MD [facility] [place] [address] [facility] [place] [address] Referral ID Status Reason Start Date Expiration Date V isits Requested Visits Authorized [id number] Closed Specialty Service Requested 01/17/2022 01/17/2023 1 1 Encounter Details Date Type Department Care Team (Late st Contact Info) Description 01/17/2022 10:00 AM EST Office [place] [address] Koko Buchanan MD SVT (supraventricular [...] Sign Reading Time Taken Comments Blood Pressure 120/73 01/17/2022 9:13 AM EST Pulse 60 01/17/2022 9:13 AM EST Temperature - - Respiratory Rate - - Oxygen Saturation 100% 01/17/2022 9:13 AM EST Inhaled Oxygen Concentration - - Weight 75.8 kg (167 lb 1.6 oz) 01/17/2022 9:13 A M EST Height 172.7 cm (5' 8) 01/17/2022 9:13 AM EST Body Mass Index 25.41 01/17/2022 9:13 AM EST Body Mass Index Percentile 85.63% 01/17/2022 9:1 3 AM EST Growth Chart: [facility] (Girls, 2- 20 Years) documented in this encounter Patient Instructions * Patient Instructions* Koko Buchanan MD - 01/17/2022 10:00 AM EST Assessment: Rosa continues to have relatively infrequent palpitations, that most likely represent self-limited episodes of supraventricular tachycardia. She also has more frequent episodes of palpitations thatare less likely related to SVT. We discussed options for Rosa which are largely based on her desire for an ablation if she is in fact having frequent episodes of SVT. Rosa does feel bothered enough by the palpitations to consider an ablation. We will therefore obtain a Zio recording to see if her symptoms are from SVT, or more likely isolated premature beats. Recommendations: Zio recording - monitor placed today Consider referral for ablation if SVT documented. Propranolol 40 mg po PRN No limitations or restrictions in Rosa's activity. SBE precautions are not indicated based on [place] [employer] guidelines. Follow-up: 3 years with electrocardiogram at that time. Sooner PRN for increased symptoms or syncope documented in this encounter Progress Notes * Koko Buchanan MD - 01/17/2022 10:00 AM EST Images from the original note were not included. Patient: Primary Care Provider: Requesting Provider: Rosa Vázquez Ana [address] [place] [phone] Unknown None Unknown None (home) Phone: None Phone: N/A Fax: None Fax: : 2005 Age/Gender: 16 y.o. female Rosa is a 16 y.o. old ( 2005) girl seen in the Pediatric Cardiology Clinic at [facility] on 01/17/2022 with the following problems: Patient Active Problem [...] years ago. She has about 2episodes per year and has taken propranolol about once per year when the episodes last more than about 15 minutes. The tachycardia then resolves in 10-15 minutes. Rosa also reports occasional episodes of palpitations that she describes as lasting only a few seconds. These have also been reported previously. These are occuring several times per day and are associated with a feeling of lightheadedness and difficulty breathing. Rosa had a single episode of syncope when getting out of a hot tub. She noted her heart racing and pounding prior to the syncopal event. Rosa has otherwise been a healthy child since the last visit with no symptoms referable to the cardiovascular system. Rosa has had no complaints of chest pain, dyspnea, or fatigue. She has a normal exercise tolerance with no difficulty keeping up with her peers. Rosa had COVID this past August and was sick for a few days, with some respiratory symptoms. She feels that she recovered fully. Review of Systems: Negative for constitutional, respiratory, gastrointestinal, neurologic, endocrine, hematologic, immunologic, urinary, dermatologic, or musculoskeletal symptoms. Social History: Rosa is here today with her mother. She is in 11th grade and taking woodworking class at school, but wants to be involved with horses for her career. Medications: Current Outpatient Medications Medication Sig Dispense Refill ??? Estarylla 0.25-35 mg-mcg Tablet Take 1 tablet by mouth daily. ??? propranoloL (Inderal) 40 mg Tablet Take 1 tablet by mouth as needed (for tachycardia lasting more than 10 minutes). 10 tablet 5 No current facility-administered medications for this visit. Physical Exam: Vitals: 01/17/22 0913 BP: 120/73 BP Location ([facility]): Right arm Patient Position: Sitting BP Cuff Sizes: Adult (25-34 cm) Pulse: 60 SpO2: 100% Weight: 75.8 kg (167 lb 1.6 oz) Height: 172.7 cm (5' 8) 93 %ile based on CDC (Girls, 2-20 Years) [id number] data based on Weight recorded on 01/17/2022. 93 %ile based on CDC (Girls, 2-20 Years) [id number] data based on Stature recorded on 01/17/2022. Body mass index is 25.41 kg/m??. Rosa is a very pleasant, healthy- [...] likely represent self-limited episodes of supraventricular tachycardia. She also has more frequent episodes of palpitations thatare less likely related to SVT. We discussed options for Rosa which are largely based on her desire for an ablation if she is in fact having frequent episodes of SVT. Rosa does feel bothered enough by the palpitations to consider an ablation. We will therefore obtain a Zio recording to see if her symptoms are from SVT, or more likely isolated premature beats. Recommendations: Zio recording - monitor placed today Consider referral for ablation if SVT documented. Propranolol 40 mg po PRN No limitations or restrictions in Rosa's activity. SBE precautions are not indicated based on [place] [employer] guidelines. Follow-up: 3 years with electrocardiogram at that time. Sooner PRN for increased symptoms or syncope documented in this encounter Plan of Treatment Not on file documented as of this encounter Results * Ziopatch 48 Hrs-15 Days (02/17/2022 8:20 AM EST) Anatomical Region Laterality Modality Other Narrative 02/21/2022 6:22 PM EST Zio Holter Report Patient Rosa Perez ? Date of Study 01/19/2022 1) There is sinus rhythm throughout the recording with appropriate rate variation. Minimum HR is 50, mean HR is 87, maximum HR is 177. 2) There is rare supraventricular ectopy recorded, all of which are isolated premature atrial beats. There are no supraventricular couplets recorded. There are no runs of supraventricular tachycardia. ?? 3) There is rare ventricular ectopy recorded, all of which are isolated, uniform, premature ventricular beats. There are no ventricular couplets recorded. There are no runs of ventricular tachycardia. ?? 4) There is no AV conduction disturbance recorded. 5) ??No symptoms were reported. There were 2 patient triggered events. There was no change in the patient? s rate or rhythm at the time of the triggered events. ??Sinus tachycardia was not correlated with patient triggers. Summary: Becky Zio recording shows no significant arrhythmia. Kayley AREVALO: Koko Buchanan M.D. Procedure Note Koko Buchanan MD - 02/21/2022 Zio Holter Report Patient Rosa Perez Date of Study 01/19/2022 1) There is sinus rhythm throughout the recording with appropriate ratevariation. Minimum HR is 50, mean HR is 87, maximum HR is 177. 2) There is rare supraventricular ectopy recorded, all of which areisolated premature atrial beats. There are no supraventricular coupletsrecorded. There are no runs of supraventricular tachycardia. 3) There is rare ventricular ectopy recorded, all of which are isolated,uniform, premature ventricular beats. There are no ventricular coupletsrecorded. There are no runs of ventricular tachycardia. 4) There is no AV conduction disturbance recorded. 5) No symptoms were reported. There were 2 patient triggered events.There was no change in the patient? s rate or rhythm at the time of thetriggered events. Sinus tachycardia was not correlated with patienttriggers. Summary: Becky Zio recording shows no significant arrhythmia. Kayley MD: Koko Buchanan M.D. Koko Buchanan MD CARDIAC SERVICES ORD ERABLES documented in this encounter Visit Diagnoses Diagnosis SVT (supraventricular tachycardia) Other specified cardiac dysrhythmias SVT (supraventricular tachycardia) Other specified cardiac dysrhythmias documented in this encounter Care Teams Consumer Studies Professor Relationship Specialty Start Date End Date Unknown None PCP - General 06/21/21 10/10/22 documented as of this encounter
--- OUTSIDE RECORDS SUMMARY | 2024-03-13 18:14 | XMS_ITS | Encounter Summary ---
Author Organization [facility] Address [facility] [place] [address] Care Team Providers Care Lasting Machine Operator Bed Name Role Phone Leda Flores APRN Primary Care Provider [phone] Reason for Visit * Reason Comments Follow-up Encounter Details Date Type Department Care Team (Late st Contact Info) Description 05/08/2023 9:20 AM EDT Office Visit Obstetrics [place] [address] Sarah Dowling MD [facility] [address] OBST[place] [address] Dysmenorrhea in adolescent (Primary Dx); Chronic pelvic pain in female Social History Tobacco Use Types Packs/Day Years [...] Sign Reading Time Taken Comments Blood Pressure 109/57 05/08/2023 9:09 AM EDT Pulse 81 05/08/2023 9:09 AM EDT Temperature 36 ??C (96.8 ??F) 05/08/2023 9:09 AM EDT Respiratory Rate 16 05/08/2023 9:09 AM EDT Oxygen Saturation 100% 05/08/2023 9:09 AM EDT Inhaled Oxygen Concentration - - Weight - - Height - - Body Mass Index - - documented in this encounter Patient Instructions * Attachments The following attachments cannot be sent through Care Everywhere. * Pelvic Laparoscopy: Pre-op (Syrian) documented in this encounter Progress Notes * Sarah Dowling MD - 05/08/2023 9:20 AM EDT [place] Follow-up Visit Reason for Visit: Rosa is a 17 y.o. No obstetric history on file. pre menopausal female who presents with the following complaints/concerns: dysmenorrhea and pelvic pain HPI: She was seen 3 months ago for dysmenorrhea and was started on continuous OCP's, TXA and scheduled ibuprofen. She reports she tried the OCP's for about a month and a half. Had bleeding every day during that time - not a ton but every day. Was doing other meds too. So no meds for past 1.5 months. End of March got her period 4 days late and had awful cramps - worst ever and passed out for two hours. Fainted and then woke up for a few minutes, then out again. Then had to drive to [facility] for college visit and it was really hard. Pain is usually worst during period and after, this last time was before. Previously she has tried depo and a nexplanon for about 3 months each. She denies pain with bowel movements. She is sexually active. Patient Active Problem List Diagnosis Date Noted SVT (supraventricular tachycardia) FHx: thyroid disease Injury of finger of right hand Constipation 01/05/2014 Urinary tract infection 11/17/2011 Past Medical History: Diagnosis Date Constipation 01/2014 FHx: heart disease MGF stents in late 50s FHx: thyroid disease Mother Injury of finger of right hand Near syncope SVT (supraventricular tachycardia) Urinary tract infection 11/17/2011 Past Surgical History: Procedure Laterality Date TONSILLECTOMY AND ADENOIDECTOMY 11/17/2011 Family History Problem Relation Age of Onset Other Other cardiac tumor Social History Occupational History Not on file Tobacco Use Smoking status: Never Smokeless tobacco: Never Tobacco comments: NO SMOKERS IN THE HOME Vaping Use Vaping Use: Never used Substance and Sexual Activity Alcohol use: Not on file Drug use: Not on file Sexual activity: Not on file OB History No obstetric history on file. Current Outpatient Medications Medication Sig Dispense Refill norethindrone-ethinyl estradiol (02/24) 1 mg-20 mcg (21)/75 mg (7) tablet Take one pill of active medication daily. Skip the placebo pills and go directly to the next pack and start with the active pills. You will need 4 packs for 3 months. (Patient not taking: Reported on 05/08/2023) 112 tablet 3 Tranexamic Acid (Lysteda) 650 mg tablet Take 2 tablets in the morning, at noon and at night (3 times/day) as soon as bleeding starts. Continue until bleeding stops OR a maximum of 5 days if bleeding continues. This can be done once per month. (Patient not taking: Reported on 05/08/2023) 90 tablet 3 propranoloL (Inderal) 40 mg Tablet Take 1 tablet by mouth as needed (for tachycardia lasting more than 10 minutes). (Patient not taking: Reported on 05/08/2023) 10 tablet 5 No current facility-administered medications for this visit. Allergies Allergen Reactions Nickel SEVERE RASH AND SWELLING Physical Exam Last Set of Vitals: BP 109/57 (BP Location (NBP): Right arm, Patient Position: Sitting, BP Cuff Sizes: Adult (25-34 cm)) Pulse 81 Temp 36 ??C (96.8 ??F) (Temporal) Resp 16 LMP 05/03/2023 (Exact Date) SpO2 100% There is no height or weight on file to calculate BMI. Physical Exam Gen: Well-appearing female in NAD Assessment/Plan: Rosa Perez is a 17 y.o. female who presents for follow-up of dysmenorrhea and chronic pelvic pain. She has now tried depo, nexplanon and OCP's with little improvement. Offered trial of another OCP or a progesterone IUD, vs proceeding with diagnostic laparoscopy to confirm endometriosis and she would like to proceed with laparoscopy. Reviewed that if endometriosis is found, then would attempt to remove/fulgurate if in safe location, and also lysis of adhesions. Offered placement of IUD as well, and she would only like to have a progesterone IUD placed if laparoscopy is negative for endometriosis. We discussed if endometriosis is found, then need for lifelong hormonal suppression to prevent/slow the formation of new implants and she would be open to restarting OCP's or another form of hormonal suppression after the procedure. Consent form and OSC form completed. Case request placed. I spent 40 minutes on this patient encounter today to include chart review, face to face examination and counseling, and coordination of care Sarah Dowling MD documented in this encounter Plan of Treatment Not on file documented as of this encounter Visit Diagnoses Diagnosis Dysmenorrhea in adolescent- Primary Chronic pelvic pain in female Unspecified symptom associated with female genital organs documented in this encounter Care Teams Lasting Machine Operator Bed Relationship Specialty Start Date End Date Leda Flores [place] [address] [place] [address] PCP - General Family Medicine 10/11/22 documented as of this encounter
--- OUTSIDE RECORDS SUMMARY | 2024-03-13 18:14 | XMS_ITS | Encounter Summary ---
Author Organization [facility] [place] [address] Care Team Providers Care Diabetes Solutions Specialist Name Role Phone Leonard Green MD, Bong Primary Care Provider Reason for Visit * Reason Onset Date Comments Heart Problem 06/29/2016 Encounter Details Date Type Department Care Team (Late st Contact Info) Description 06/29/2016 Telephone Pediatric Cardiology at [address] [id number] Herman Ackerman MD [address] [place] [address] [place] [address] Heart Problem Social History Tobacco Use Types Packs/Day Years Used Date Smoking Tobacco: Never Comments:NO SMOKERS IN THE H OME Sex and Gender Information Value Date Recorded Sex Assigned at Female 02/08/2023 12:59 PM EST Gender Identity Female 02/08/2023 12:59 PM EST Sexual Orientation Straight 02/08/2023 12 :59 PM EST documented as of this encounter Miscellaneous Notes * Telephone Encounter - Herman Ackerman MD - 06/29/2016 12:49 PM EDT TELEPHONE ENCOUNTER NOTE: I received a call today from Dr. Sachin Mcgowan, an emergency medicine physician caring for Rosa at [facility]. Rosa presented there today for an episode of palpitations which began while she was throwing a foot ball. She was seen by the school nurse who noted a heart rate in the 190s. Heart rates upon presentation to the ER were also in the 190s to low 200s. Two EKGsobtained revealed a narrow complex tachycardia at 181 and 193 bpm with no clearly identifiable P-waves (scanned to [facility]). Vagal maneuvers were attempted without a change in the heart rate. She therefore received a dose of adenosine 6mg, with which there was a described abrupt break to sinus rhythm and a follow- up EKG reportedly revealed sinus rhythm at approximately 100 bpm. The estimated durationof the episode was about 60 minutes, and it was hemodynamically well tolerated. Lab work, includingelectrolytes, were pending at the time of our conversation. Rosa was previously seen in cardiology clinic by Dr. Buchanan (10/19/2015) to evaluate palpitations.SVT was suspected as a possible cause at that time, though at that point her heart rhythm had not been documented during symptoms. Today's episode is believed to be her 6th episode total. The most recent episode occurred about 3 weeks ago. Until today all episodes had terminated spontaneously. Dr. Mcgowan's specific question was if additional testing was necessary at this time and she asked for recommendation regarding short term management and follow-up. I asked that she fax the rhythm strip documenting conversion from SVT to sinus rhythm as well as the follow-up EKG. Provided Rosa's pending lab work was normal and she was otherwise feeling well, I did not feel additional testing was necessary. I recommended that Dr. Mcgowan review vagal maneuvers with Rosa and her family. With thisbeing Rosa's first episode of SVT requiring ER management, I did not feel initiation of antiarrhythmic therapy was necessary at this time. However, if there was a strong preference on the part of the family to begin such treatment, this was certainly reasonable. I will arrange for Rosa to have a follow-up cardiology visit with an EKG and echocardiogram and to discuss longer-term management. HERMAN ACKERMAN MD, MSc Pediatric Cardiology [facility] documented in this encounter Plan of Treatment Not on file documented as of this encounter Visit Diagnoses Not on filedocumented in this encounter Care Teams Diabetes Solutions Specialist Relationship Specialty Start Date End [place] [address] PCP - General 12/28/09 10/04/16 documented as of this encounter
--- OUTSIDE RECORDS SUMMARY | 2024-03-13 18:14 | XMS_ITS | Clinical Summary ---
Author Organization [facility] Address [facility] [place] [address] Care Team Providers Care Printing Equipment Mechanic Name Role Phone Leda Flores APRN Primary Care Provider [phone] Allergies Active Allergy Reactions Criticality Noted Date Comments Nickel 10/19/2015 SEVERE RASH AND SWELLING Medications Medication Sig Dispensed Refills Start Date End Date Status propranoloL (Inderal) 40 mg TabletIndications: SVT (supraventricular tachycardia) Take 1 tablet by mouth as needed (for tachycardia lasting more than 10 minutes). 10 tablet 5 04/03/2019 Active norethindrone-ethi nyl estradiol (02/24) 1 mg-20 mcg (21)/75 mg (7) tablet Take one pill of active medication daily. Skip the placebo pills and go directly to the next pack and start with the active pills. You will need 4 packs for 3 months. 112 tablet 3 02/08/2023 Active Additional Information Patient not taking.Reported on 05/08/2023 Tranexamic Acid (Lysteda) 650 mg tablet Take 2 tablets in the morning, at noon and at night (3 times/day) as soon as bleeding starts. Continue until bleeding stops OR a maximum of 5 days if bleeding continues. This can be done once per month. 90 tablet 3 02/08/2023 Active oxyCODONE (Roxicodone) 5 mg tablet Take 1 tablet by mouth every 4 hours as needed for Pain. 5 tablet 08/21/2023 Active oxyCODONE (Roxicodone) 5 mg tablet Take 1 tablet by mouth every 4 hours as needed for Pain. 5 tablet 08/21/2023 Active drospirenone, contraceptive, (Slynd) 4 mg (28) tablet Take 1 tablet by mouth daily. 84 tablet 3 09/12/2023 Active Active Problems Problem Noted Date Diagnosed Date Constipation 01/05/2014 Urinary tract infection 11/17/2011 FHx: thyroid disease Overview (10/15/2015): Mother Injury of finger of right hand SVT (supraventricular tachycardia) Overview (12/11/2016): Summer 2014[place] On a ride c/o 'not feeling well'. Heart started pounding and 'felt weird'. Treated with rest, shade and water. Heart rate gradually slowed lasting ~ 1 hour. 04/2015: supine in bed watching brother play [employer]. C/o 'forceful heart beat' (trevon on phone [...] 200bpm. No change with vagal maneuvers. Adenosine administered with abrupt break to sinus rhythm. Follow-up EKG with sinus rhythm = ~100 bpm. 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 Prescribed PRN propranolol 06/30 - 07/05/2016 ZIO: normal 12-08-16 ECHO: normal 12-18-16 Prescribed PRN propranolol No SBE precautions. No activity restrictions. Follow up 12/2018 Assessment & Plan (12/08/2016 5:20 PM EDT): Rosa is having relatively infrequent palpitations, less [...] or o long duration requiring ED management. Family History Medical History Relation Comments Other Other cardiac tumor Relation Status Comments Other Alive Social History Tobacco Use Types Packs/Day Years Used Date Smoking Tobacco: Never Smokeless Tobacco: Never Tobacco Cessation:Counseling Given: Not Answered Comments:NO SMOKERS IN THE HOME Alcohol Use Standard Drinks/Week Comments Not Currently [...] Orientation Straight 02/08/2023 12 :59 PM EST Last Filed Vital Signs Vital Sign Reading Time Taken Comments Blood Pressure 98/50 09/12/2023 11:30 AM EDT Pulse 65 08/21/2023 3:00 PM EDT Temperature 36 ??C (96.8 ??F) 08/21/2023 2:01 PM EDT Respiratory Rate 19 08/21/2023 3:00 PM EDT Oxygen Saturation 99% 08/21/2023 3:00 PM EDT Inhaled Oxygen Concentration - - Weight 74.8 kg (165 lb) 08/21/2023 12:03 PM EDT Height 172.7 cm (5' 8) 08/21/2023 12:03 PM EDT Body Mass Index 25.09 08/21/2023 12:03 PM EDT Body Mass Index Percentile 81.08% 08/21/2023 12: 03 PM EDT Growth Chart: CDC (Girls, 2- 20 Years) Plan of Treatment Health Maintenance Due Date Last Done Comments Chlamydia Screening 11/28/2019 HPV vaccine (1 - 3-dose series) 11/28/2019 HIV screen 2022 Hepatitis C Screening 2022 Covid-19 Vaccine ( season) 2023 Influenza (Flu) vaccine (1 o f 1 - Influenza standard series) 10/07/2023 Hepatitis B vaccine (0-59 yrs) (1) 11/28/2023 Tetanus/Diphtheria/Pertussis Vaccines (1 - Tdap) 11/27 Advance Directives * Attempt Cardiopulmonary Resuscitation - Inpatient (Latest Code Status on File) Date Activated Date Inactivated Comments 08/21/2023 12:27 PM 08/21/2023 5:17 PM Question Answer Comments Code Status decision made by: Patient Content of discussion: elective procedure Care Teams Printing Equipment Mechanic Relationship Specialty Start Date End Date Leda Flores, PUBLIC DEF[place] [address] [place] [address] PCP - General Family Medicine 10/11/22
--- OUTSIDE RECORDS SUMMARY | 2024-03-13 18:14 | XMS_ITS | Encounter Summary ---
[place] [address] Care Team Providers Care Barrel Cooper Name Role Phone Bong Valle MD Primary Care Provider [phone] Encounter Details Date Type Department Care Team (Late st Contact Info) Description 10/01/2018 Telephone [place] [phone] Faby Rae RN Social History Tobacco Use Types Packs/Day Years Used Date Smoking Tobacco: Never Comments:NO SMOKERS IN THE H OME Sex and Gender Information Value Date Recorded Sex Assigned at Female 02/08/2023 12:59 PM EST Gender Identity Female 02/08/2023 12:59 PM EST Sexual Orientation Straight 02/08/2023 12 :59 PM EST documented as of this encounter Miscellaneous Notes * Telephone Encounter - Faby Rae RN - 10/01/2018 11:10 AM EDT Call placed to mother to let her know that we have faxed the SVT plan to the school nurse, Charlotte Martinez. Fax for school [phone] * Telephone Encounter - Faby Rae RN - 10/01/2018 11:08 AM EDT ----- Message from Maddi Cooper sent at 10/01/2018 8:40 AM EDT ----- School nurse: Charlotte Martinez ----- Message ----- From: Maddi Cooper Sent: 10/01/2018 8:37 AM EDT To: [facility] [place], [place] Pedi Cardiology Nurse Mom, Haydee, called to get an emergency action plan for school incase Propraonolol needs to be administered at school. Haydee [phone] Fax for school [phone] documented in this encounter Plan of Treatment Not on file documented as of this encounter Visit Diagnoses Not on filedocumented in this encounter Care Teams Barrel Cooper Relationship Specialty Start Date End Date Bong Valle MD [address] [place] [address] PCP - General Pediatrics 10/05/16 06/20/21 documented as of this encounter
--- OUTSIDE RECORDS SUMMARY | 2024-03-13 18:14 | XMS_ITS | Encounter Summary ---
[place] [address] Care Team Providers Care Market Research Assistant Name Role Phone Leda Flores APRN Primary Care Provider [phone] Encounter Details Date Type Department Care Team (Late st Contact Info) Description 09/24/2023 Notes Only Obstetrics [place] [address] Fely Carpenter, RN Social History Tobacco Use Types Packs/Day Years Used Date Smoking Tobacco: Never Smokeless Tobacco: Never Comments:NO SMOKERS IN THE H OME Alcohol Use Standard Drinks/Week Comments Not Currently 0 (1 standard drink = 0.6 oz pur e alcohol) [facility] Inpatient Questions Answer Date Recorded Does Anyone [...] as of this encounter Progress Notes * Fely Carpenter, RN - 09/24/2023 4:22 PM EDT Prior Authorization request attempted for Slynd through covermymeds but unable to submit. Submittedrequest instead by fax to [employer]. Awaiting response from insurance company. documented in this encounter Plan of Treatment Not on file documented as of this encounter Visit Diagnoses Not on filedocumented in this encounter Care Teams Market Research Assistant Relationship Specialty Start Date End Date Leda Flores, TECHNOLOGY PROJECT MANAGER [facility] [place] [address] PCP - General Family Medicine 10/11/22 documented as of this encounter
--- OUTSIDE RECORDS SUMMARY | 2024-03-13 18:14 | XMS_ITS | Encounter Summary ---
[place] [address] Care Team Providers Care Account Executive Trainee Name Role Phone Bong Valle MD Primary Care Provider [phone] Reason for Visit * Reason Onset Date Comments Medication Refill 03/31/2019 Medication Refill 04/03/2019 Encounter Details Date Type Department Care Team (Late st Contact Info) Description 03/31/2019 Refill [place] [address] Koko Buchanan MD Medication Refill; Medication Refill Social History Tobacco Use Types Packs/Day Years [...] dysrhythmias documented in this encounter Care Teams Account Executive Trainee Relationship Specialty Start Date End Date Bong Valle MD [address] [place] [address] [facility] [place] [address] PCP - General Pediatrics 10/05/16 06/20/21 documented as of this encounter
--- OUTSIDE RECORDS SUMMARY | 2024-03-13 18:14 | XMS_ITS | Encounter Summary ---
[facility] [place] [address] Care Team Providers Care Log Carrier Operator Name Role Phone Leda Flores APRN Primary Care Provider Reason for Visit * Auth/Cert (Routine) Specialty Diagnoses / Procedures Referred By Irene dunbar Referred To Contact Diagnoses Dysmenorrhea in adolescent Chronic pelvic pain in female dysmenorrhea, chronic pelvic pain Procedures PRO LAP, DIAGNOSTIC ABDOMEN PRO INSERT INTRAUTERINE DEVICE LAPAROSCOPY, DIAGNOSTIC, ABDOMEN (WRVU 5.14) INSERTION OF IUD, VAGINAL APPROACH (WRVU 1.01) Sarah Dowling MD [facility] [address] [facility] Referral ID Status Reason Start Date Expiration Date Visits Re quested Visits Authorized [id number] 1 1 Encounter Details Date Type Department Care Team (Latest Contact Info) Description 08/21/2023 11:57 AM EDT - 08/21/2023 3:10 PM EDT Hospital Encounter [facility] [id number] Sarah Dowling MD [facility] [address] Dysmenorrhea in adolescent; Chronic pelvic pain in female Discharge Disposition: Home Social History Tobacco Use Types Packs/Day Years [...] Sign Reading Time Taken Comments Blood Pressure 120/60 08/21/2023 3:00 PM EDT Pulse 65 08/21/2023 3:00 PM EDT [...] 08/21/2023 12: 03 PM EDT Growth Chart: [facility] (Girls, 2- 20 Years) documented in this encounter Discharge Instructions * Discharge Instructions* Darya Flores RN - 08/21/2023 12:10 PM EDT General Anesthesia Discharge Instructions Go home and rest. You may be sleepy for several hours. Take it easy as sudden position changes may cause nausea and/or dizziness. Use caution on stairs. Follow a light to regular diet as tolerated today. If nausea occurs, start with clear liquids, and progress slowly to a regular diet. Do not drive, operate machinery, drink alcoholic beverages or make any legal decisions after havinggeneral anesthesia. The medications given change your reaction time and alter your judgement. IV site -- slight redness is normal, you can use warm compresses. If tenderness and redness increases or foul drainage occurs, please contact your M.D. Patients who have had endotracheal tubes/LMA (tubes used by the anesthesia staff to ensure a safe airway during your operation) may have a sore throat. This is normal and cold liquids or soothing lozenges will help ease this discomfort. Narcotic pain medications can cause constipation, please ask the surgeons office what they recommend for prevention of this. Some non-pharmaceutical means of constipation prevention include increasing intake of fluids, eating more fruits and vegetables as well as fruit juices. If you are uncomfortable and/or unable to urinate within 8 hours of discharge and it is before 5 pm, call your physician. If it is after 5pm go to the closest emergency room or call the hospital automatic drill operator at [phone] and ask for physician academic services professional covering for your physician. Questions or problems after 5pm or on a weekend: Call the [facility] automatic drill operator at and ask for the physician academic services professional covering for your doctor. At 12:20pm you received 975 mg of acetaminophen- Your next dose should not be taken before 8 hours have passed or as advised by your provider. Next dose not before 8:20pm. You should not take more than a total of 3000 mg of acetaminophen in a 24 hour period. * Patient Instructions* Courtney Arias MD - 08/20/2023 8:16 AM EDT Images from the original note were not included. PATIENT DISCHARGE INSTRUCTIONS [facility] BILLING ADJUDICATOR Department: Follow Up Appointment: Future Appointments Date Time Provider Department Center 09/12/2023 11:40 AM Sarah Dowling MD [facility] OBG 5L [facility] Call your doctor if you develop: --A fever over 101 degrees --Severe pain --Heavy vaginal bleeding --Increasing pain, redness, or discharge at your incision Activity level: No heavy lifting, pushing or pulling for 6 weeks, nothing greater than 10lbs. Diet: You may resume your regular diet. Be sure you drink plenty of fluids. Please use brown-colace (or colace) 1-2 tablets twice daily for the entire time that you are taking pain medication to keep your bowel movements soft and regular. If you are constipated or have not had a bowel movement in 3 days, please use milk of magnesia (or miralax) as directed over the counter. Driving: Do not drive until you are off of all narcotic medications and you are not feeling pain; usually about 2 weeks. Shower/Bath: Showering is fine. Short baths are OK but you should avoid having any abdominal incision submerged for more than 10-15 minutes for the next 2 weeks. Wound Care: Your incisions are closed with dissolvable stiches and steri-strips (small pieces of tape). The steri-strips will start to peel off in 5-7 days, do not pick or rub them prior to this. Thestitches do not need to be removed-- they will dissolve on their own. Pain medications include ibuprofen (Advil/Motrin), acetaminophen (Tylenol), and oxycodone. Please use ibuprofen 600 mg every 6 hours with food around the clock for the next several days and then after that use it only as needed. You may take Tylenol (acetaminophen) over the counter as prescribed, 650mg every 6 hours as needed,for the first two days, you may want to schedule this, every 6 hours. Do not exceed 3000mg of Tylenol in any 24 hour period. You can take ibuprofen and Tylenol at the same time as the two medicationswork differently. Please use the oxycodone every 4-6 hours as needed for pain that breaks through the ibuprofen andacetaminophen. Please take your medication exactly as prescribed. Read all instructions that come with your medication. Using narcotic pain medication (such as oxycodone, hydromorphone (Dilaudid), morphine, fentanyl, ortramadol) may cause addiction. While addiction is more common in people with a personal or family history of addiction, it can occur in anyone. Taking more than the prescribed amount of medication or using with alcohol or other drugs can causeyou to stop breathing resulting in coma, brain damage, or . Opioids (oxycodone, hydromorphone/Dilaudid, morphine, fentanyl, tramadol) can slow reaction time, cause drowsiness, or cloud judgement. It is unsafe for you to drive or operate heavy machinery while taking this medication. Opioids (oxycodone, hydromorphone/Dilaudid, morphine, fentanyl, tramadol) are at risk of being diverted by anyone with access to your home. Opioids should be stored in a safe and secure place, such as a locked cabinet or safe. Unused opioids (oxycodone, hydromorphone/Dilaudid, morphine, fentanyl, tramadol) should be disposedof according to the label or patient information. If there are no specific instructions, medications may be returned to a take-back location as documented below. documented in this encounter Medications at Time of Discharge Medication Sig Dispensed Refills Start Date End Date oxyCODONE (Roxicodone) 5 mg tablet Take 1 tablet by mouth every 4 hours as needed for Pain. 5 tablet 08/21/2023 oxyCODONE (Roxicodone) 5 mg tablet Take 1 tablet by mouth every 4 hours as needed for Pain. 5 tablet 08/21/2023 norethindrone-ethinyl estradiol (Junel FE 02/24) 1 mg-20 mcg (21)/75 mg (7) tablet Take one pill of active medication daily. Skip the placebo pills and go directly to the next pack and start with the active pills. You will need 4 packs for 3 months. 112 tablet 3 02/08/2023 Tranexamic Acid (Lysteda) 650 mg tablet Take 2 tablets in the morning, at noon and at night (3 times/day) as soon as bleeding starts. Continue until bleeding stops OR a maximum of 5 days if bleeding continues. This can be done once per month. 90 tablet 3 02/08/2023 propranoloL (Inderal) 40 mg TabletIndications:SVT (supraventricular tachycardia) Take 1 tablet by mouth as needed (for tachycardia lasting more than 10 minutes). 10 tablet 5 04/03/2019 documented as of this encounter H&P Notes * Tato Abdalla MD - 08/21/2023 12:11 PM EDT Gynecology H & P Problem List: Dysmenorrhea Chronic pelvic pain AUB Active Non-Hospital Problems Diagnosis SVT (supraventricular tachycardia) FHx: thyroid disease Injury of finger of right hand Constipation Urinary tract infection History of Present Illness: 17 y.o. Female with a history of SVT (on propanolol), dysmenorrhea and chronic pelvic pain who presents for scheduled diagnostic laparoscopy, possible removal of endometriosis, possible lysis of adhesions, possible IUD insertion. Patient was last seen on 05/08/2023. Patient is here with mother, Haydee. She is feeling well today. Patient denies any changes in medical history since her last visit. No new medications or surgeries. Allergies reviewed. Review of Systems: Constitutional: Negative for activity change, fatigue and fever. Respiratory: Negative for cough, shortness of breath and wheezing. Cardiovascular: Negative for chest pain, palpitations and leg swelling. Gastrointestinal: Negative for abdominal pain, nausea and vomiting. Genitourinary: Negative for pelvic pain and vaginal bleeding. Neurological: Negative for dizziness and headaches. Past Medical and Surgical History: Past Medical History: Diagnosis Date Constipation 01/2014 FHx: heart disease MGF stents in late 50s FHx: thyroid disease Mother Injury of finger of right hand Near syncope SVT (supraventricular tachycardia) Urinary tract infection 11/17/2011 Past Surgical History: Procedure Laterality Date TONSILLECTOMY AND ADENOIDECTOMY 11/17/2011 Prior To Admission Medications: Medications Prior to Admission Medication Sig Dispense Refill Last Dose norethindrone-ethinyl estradiol (02/24) 1 mg-20 mcg (21)/75 [...] taking: Reported on 05/08/2023) 10 tablet 5 Allergies: Allergies Allergen Reactions Nickel SEVERE RASH AND SWELLING Family History: Family History Problem Relation Age of Onset Other Other cardiac tumor Social History and Habits: Social History Socioeconomic History Marital status: Single Spouse name: Not on file Number of children: Not on file Years of education: Not on file Highest education level: Not on file Occupational History Not on file Tobacco Use Smoking status: Never Smokeless tobacco: Never Tobacco comments: NO SMOKERS IN THE HOME Vaping Use Vaping status: Never Used Substance and Sexual Activity Alcohol use: Not Currently Drug use: Not Currently Sexual activity: Not on file Other Topics Concern Not on file Social History Narrative Not on file Social Determinants of Health Financial Resource Strain: Not on file Food Insecurity: Not on file Transportation Needs: Not on file Physical Activity: Not on file Intimate Partner Violence: Not At Risk (08/21/2023) IPV Inpatient Questions Prevent Contact with Others: no Feels Threatened by Someone: no Feels Unsafe at Home: no Physical Signs of Abuse Present: no Housing Stability: Not on file Physical Exam: Last Set of Vitals: Last value Range last 24 hrs Temperature Temp: 36.9 ??C (98.4 ??F) Temp: [36.9 ??C (98.4 ??F)] Heart Rate Heart Rate: 77 Heart Rate: [77] Blood Pressure BP: 127/65 BP: (127)/(65) Respiratory Rate Resp: 16 Resp: [16] SpO2 SpO2: 99 % SpO2: [99 %] General: Well developed female, NAD, AOx3. Lungs: clear to auscultation bilaterally, no rhonchi, rales, or wheezes Heart: RRR, normal S1/S2, no murmurs/rubs/gallops Extremities: No calf tenderness or lower ext edema Neuro: grossly intact Laboratory (Last 24 Hours): test negative Assessment/Plan: Rosa Perez is a 17 y.o. premenopausal female with a history of SVT (on propanolol), AUB, dysmenorrhea and chronic pelvic pain who presents for scheduled diagnostic laparoscopy, possible removalof endometriosis, possible lysis of adhesions, possible IUD insertion. Proceed with planned procedure today. Consent was reviewed with the patient. Patient elects to proceed and surgical consents were placed in chart; previously signed 05/08/2023. Patient counseled to take oxycodone only for breakthrough pain not responsive to acetaminophen and ibuprofen. She was counseled regarding the dangers of these medications including sedation which would impair her ability to drive safely. The potential for addiction with continued use of narcotic was discussed and the need to stop use as soon as possible. It was recommended that she promptly destroy unused medication or take them back to drop box locations. The opioid risk assessment was done, opioid informed consent reviewed and signed by patient, PDMP query completed. Discharge instructions discussing the risk of opioids are included in her discharge instructions which are printed and given to the patient at discharge. Patient verbalized understanding. Preop test: negative SCDs for VTE ppx Same day discharge Patient was seen and discussed with attending logistics intern, Dr. Dowling. Tato Abdalla MD PGY1 08/21/23 [id number] Associated attestation - Sarah Dowling MD - 08/21/2023 12:31 PM EDT Patient seen and evaluated. Agree with resident H&P as above. Plan to proceed with diagnostic laparoscopy, possible excision/fulguration of endometriosis, possible lysis of adhesions, possible liletta IUD insertion if no endometriosis found on laparoscopy as scheduled. Sarah Dowling MD documented in this encounter Miscellaneous Notes * Brief Op Note - Sarah Dowling MD - 08/21/2023 1:54 PM EDT Brief Operative Note Patient Name: Rosa Perez : [id number] MR#: [id number] Case Date: 08/21/2023 Surgeon: Surgeons and Role: * Sarah Dowling MD - Primary * Courtney Arias MD - Resident - Assisting * Tato Abdalla MD - Resident - Assisting Preoperative diagnosis: dysmenorrhea, chronic pelvic pain Postoperative diagnosis: dysmenorrhea, chronic pelvic pain, likely endometriosis Procedure(s) (LRB): LAPAROSCOPY, DIAGNOSTIC, ABDOMEN (WRVU 5.14) (N/A) Diagnostic laparoscopy, peritoneal biopsy Anesthesia: General Findings: Normal upper abdominal survey. Normal appearing uterus, bilateral fallopian tubes and ovaries. Normal appearing bladder and anterior cul-de-sac. Posterior cul-de-sac with 1-2cm left peritoneal window and two several mm clear vesicles on the right uterosacral ligament. Complications: None Estimated Blood Loss: 5 mL Specimens removed during surgery: Peritoneal biopsy Fluids: Intraprocedure Crystalloid Total Intake lactated ringers 900.00 mL Total Intake 900 mL Output Other Output 100 mL Total Output 100 mL Net Net Volume 800 mL PRBCs: none (See Anesthesia Record/Report for Other Blood Products) Urine Output: (no urine output recorded) Drains: None Disposition: awakened from anesthesia, extubated and taken to the recovery room in a stable condition, having suffered no apparent untoward event. Condition: doing well without problems (Please see the Surgical Encounter Summary for any Implant and Specimen details pertinent to this patient.) Surgical Infection Prevention Bundle Used? N/A * Op Note - Sarah Dowling MD - 08/21/2023 1:08 PM EDT [facility] Operative Note Patient Name: Rosa Perez : [id number] MR#: [id number] Case Date: 08/21/2023 Surgeon: Surgeons and Role: * Sarah Dowling MD - Primary * Courtney Arias MD - Resident - Assisting * Tato Abdalla MD - Resident - Assisting Preoperative diagnosis: dysmenorrhea, chronic pelvic pain Postoperative diagnosis: dysmenorrhea, chronic pelvic pain, likely endometriosis Procedure(s) (LRB): LAPAROSCOPY, DIAGNOSTIC, ABDOMEN (WRVU 5.14) (N/A) Diagnostic laparoscopy, peritoneal biopsy Anesthesia: General Findings: Normal upper abdominal survey. Normal appearing uterus, bilateral fallopian tubes and ovaries. Normal appearing bladder and anterior cul-de-sac. Posterior cul-de-sac with 1-2cm left peritoneal window and two several mm clear vesicles on the right uterosacral ligament. Complications: None Estimated Blood Loss: 5 mL Specimens removed during surgery: Peritoneal biopsy Fluids: Intraprocedure Crystalloid Total Intake lactated ringers 900.00 mL Total Intake 900 mL Output Other Output 100 mL Total Output 100 mL Net Net Volume 800 mL PRBCs: none (See Anesthesia Record/Report for Other Blood Products) Urine Output: (no urine output recorded) Drains: None Disposition: awakened from anesthesia, extubated and taken to the recovery room in a stable condition, having suffered no apparent untoward event. Condition: doing well without problems (Please see the Surgical Encounter Summary for any Implant and Specimen details pertinent to this patient.) Surgical Infection Prevention Bundle Used? N/A Procedure Note: The patient was taken to the operating room with IV fluids running. General anesthesia was obtained without difficulty. She was positioned in dorsal lithotomy using Yellofin stirrups and prepared and draped in the usual sterile manner. A time out procedure was performed with all members in agreement. Weighted speculum and Danielle retractor was placed and single tooth tenaculum was placed on anterior lip of cervix. Hulka uterine manipulator was placed on posterior cervix as patient's uterus was retroverted to assist with uterine manipulation during the procedure. Speculum was thenremoved. Attention was then turned to the laparoscopic portion of the procedure. Local anesthetic was infused into the umbilical fold. A 5 mm vertical skin incision was made within the umbilical fold. Verres needle was carefully advanced through the incision. Intra-peritoneal placement was confirmed with Armando's water test and low initial insufflation pressure. The abdomen was insufflated with CO2 gas toa pressure of 15mmHg and the Verres was withdrawn. The 5mm OptiView trochar was then carefully advanced through the umbilical incision while tenting up the abdominal wall. Intraperitoneal placement was confirmed with the laparoscope. A 5 mm RLQ port was then placed under direct visualization after infiltration with local anesthetic. Systematic inspection of the pelvis revealed benign bilateral ovarian fossae, normal uterus and fundus, and normal bilateral ovaries and fallopian tubes. There were two vesicular lesion over right uterosacral ligament. A 5 mm LLQ port was placed in a similar fashion as described above. Ureter was identified superior and several cm away from the lesions. Harmonic chika was used to excise two vesicular lesions and sent for permanent pathology. Hemostasis was confirmed with direct visualization. The laparoscopic instruments were removed. Pneumoperitoneum was released. The ports were removed from the abdomen. The port incisions were closed with 4-0 Monocryl in a subcuticular fashion. Steri strips and sterile dressings were applied to all port sites. The Hulka was removed from the vagina. Speculum was placed and hemostasis was achieved byholding pressure with sponge stick. The patient was awakened from anesthesia. She tolerated the procedure well with no apparent complications. She returned to the recovery room in stable condition. Dr. Dowling was present for the entire procedure with no conflicting clinical responsibilities. Courtney Arias MD PGY-2 Obstetrics and Gynecology 08/21/23 Attestation: Case Date: 08/21/2023 I was present and I participated during the entire procedure (does not need to include opening and closing). Sarah Dowling MD 08/21/2023 documented in this encounter Plan of Treatment Not on file documented as of this encounter Procedures Procedure Name Priority Date/Time Associated Diagnosis Comments SURGICAL PATHOLOGY REPORT Routine 08/21/2023 1:43 PM EDT SPECIMEN TO PATHOLOGY Routine 08/21/2023 1:43 PM EDT Lap, Diagnostic Abdomen (57917) 08/21/2023 12:40 PM EDT Dysmenorrhea in adolescent Chronic pelvic pain in female POCT URINE Routine 08/21/2023 12:17 PM EDT LAPAROSCOPY, DIAGNOSTIC Routine 08/21/2023 8:30 AM EDT Dysmenorrhea in adolescent Chronic pelvic pain in female documented in this encounter Results * Surgical Pathology Report (08/21/2023 1:43 PM EDT) Final Diagnosis [id number] ? Location: [facility] The signing pathologist has (i) examined the relevant preparation(s) for the specimen(s) and (ii) rendered or confirmed the diagnosis(es). . ?Surgical Pathology DIAGNOSIS A - Peritoneum (biopsy): ??- Fibroconnective tissue with Mullerian-type glands, stromal cells ?and thermal artifact, see discussion. Electronically signed by: ?Nik AREVALO, Fior Raines Verified: ??08/24/2023 12:54 ??Pathologist Performed at: ??-[facility] Dept. of Pathology, [place] [address] Coil Connector Repairer: Alondra Lopez MD, FCAP, ??CLIA Certificate: [id number] DISCUSSION Significant thermal artifact is present; however, sections show few Mullerian glands (PAX8+) surrounded by CD10+ stromal cells, compatible with endometriosis in the correct clinical context. ADDITIONAL STUDIES Immunohistochemistry Studies: Formalin-fixed, paraffin-embedded tissue sections are studied using the polymer technique with appropriate positive and negative controls. ?These IHC studies provide the pathologist with adjunctive diagnostic information. Antibody specificity has been verified by testing antibodies on a series of in-house tissues with known immunohistochemical performance characteristics. The clinical interpretation of any antibody positive staining or its absence is evaluated within the context of clinical presentation, morphology, histopathological criteria and other diagnostic tests. Block ? Antibody ?Result (Positive/Negative) A1 ? PAX8 ? Positive (faint in glands) ? CD10 ? Positive (stromal cells) ? ER ? Negative to faint focal expression Deeper levels were examined. SPECIMEN(S) SUBMITTED A - Peritoneal, biopsy (1) CLINICAL INFORMATION Dysmenorrhea, chronic pelvic pain SPECIMEN PROCESSING A - Labeled/Fixative: Peritoneal biopsy, formalin. Quantity/Size: Single, 0.3 x 0.2 x 0.2 cm. Tissue Description: Soft, lamb-roach tissue. Sections/Processing: Submitted in toto in 1 cassette labeled A1. ??jnr 08/24/2023 12:54 PM EDT [facility] SPECIMEN FROM PERITONEUM / Unknown 08/21/2023 1:43 PM EDT 08/21/2023 1:43 PM EDT Sarah Dowling MD PATHOLOGY/CYTOLOGY ORDERABLES [facility] [place] [address] * Specimen to Pathology (08/21/2023 1:43 PM EDT) AP Specimen 08/21/2023 1:43 PM EDT 08/21/2023 1:43 PM EDT Narrative [facility] - 08/21/2023 1:43 PM EDT Specimen requisition ordered. ??Separate Pathology report to follow Sarah Dowling MD PATHOLOGY/CYTOLOGY ORDERABLES Performing Organization Address City/[facility]/[place] [address] * POCT urine (08/21/2023 12:17 PM EDT) POC Urine HCG Negative POC Control Internal Controls Acceptable 08/21/2023 12:1 7 PM EDT Sarah Dowling MD POINT OF CARE TEST ORDERABLES documented in this encounter Visit Diagnoses Diagnosis Dysmenorrhea in adolescent Chronic pelvic pain in female Unspecified symptom associated with female genital organs documented in this encounter Administered Medications Inactive Administered Medications - up to 3 most recent administrations Medication Order MAR Action Action Date Dose Rate Site acetaminophen (Tylenol) 325 mg tablet 1 dose, Starting on Sun08/21/23 at 1218, Until Sun08/21/23 at 1219, Darya Flores: rigo override acetaminophen (Tylenol) tablet 975 mg 975 mg, Oral, ONCE, 1 dose, On Sun08/21/23 at 1230, Maximum dose of acetaminophen is 4,000 mg from all sources in 24 hours. When ordered for pain, acetaminophen should be given even when other ordered pain medications are indicated. , Routine Given 08/21/2023 12:19 PM EDT 975 mg documented in this encounter Active and Recently Administered Medications Times are shown in EDT. Scheduled Medication Order 08/19/2023 08/20/2023 08/21/2023 acetaminophen (Tylenol) tablet 975 mg (COMPLETED) 975 mg, Oral, ONCE, 1 dose, On Sun08/21/23 at 1230, Maximum dose of acetaminophen is 4,000 mg from all sources in 24 hours. When ordered for pain, acetaminophen should be given even when other ordered pain medications are indicated. , Routine 1219 (Given - Provid er: Darya Flores RN) levonorgestreL (Liletta) 20.4 mcg/24 hr intra-uterine device (8 year) 1 Intra Uterine Device, Intrauterine, ONCE, 1 dose, On Sun08/21/23 at 1230, Routine 1230 (Due) PRN Medication Order 08/19/2023 08/20/2023 08/21/2023 acetaminophen (Tylenol) tablet 650 mg 650 mg, Oral, EVERY 6 HOURS PRN, Starting on Sun08/21/23 at 1404, Until Sun08/21/23 at 1717, Pain, -If multiple pain medications ordered, use acetaminophen first. -Maximum dose of acetaminophen is 4,000 mg from all sources in 24 hours. -When ordered for pain, acetaminophen should be given even when other ordered pain medications are indicated., Routine BUPivacaine (pf) (Marcaine) (2.5 mg/mL) 0.25% injection (CANCELED) PRN, Starting on Sun08/21/23 at 1322, Until Sun08/21/23 at 1717, Intra-Operative (Intra-Procedure), Routine 1322 (Given - Provid er: Sarah Dowling MD)1325 (Given - Provider: Sarah Dowling MD) oxyCODONE (Roxicodone) tablet 5-10 mg 5-10 mg, Oral, EVERY 3 HOURS PRN, Starting on Sun08/21/23 at 1404, Until Sun08/21/23 at 1717, Pain, - If multiple pain medications ordered, use acetaminophen first. - If pain not relieved by acetaminophen first, administer oxyCODONE. - Initial dose 5 mg. - If pain control not adequate in 60 minutes, give additional 5 mg., Routine documented in this encounter Care Teams Log Carrier Operator Relationship Specialty Start Date End Date Leda Flores, COLBY [address] [place] [address] PCP - General Family Medicine 10/11/22 documented as of this encounter
--- OUTSIDE RECORDS SUMMARY | 2024-03-13 18:14 | XMS_ITS | Referral Summary ---
Author Organization [facility] Address [address] [place] [address] Care Team Providers Care Blast Furnace Helper Name Role Phone Bong Valle MD Primary Care Provider Dennis dia Social History Tobacco Use Types Packs/Day Years Used Date Smoking Tobacco: Never Assessed Comments Unknown Sex and Gender Information Value Date Recorded Sex Assigned at Not on file Legal Sex Female 18:51 EST Gender Identity Not on file Sexual Orientation Not on file Plan of Treatment Not on file Procedures Procedure Name Priority Date/Time Associated Diagnosis Comments HEPATITIS C AB W REFLEX TO HCV RNA BY PCR Routine 03/08/2023 14:50 EST from Last 3 Months or Most Recently Relevant to Health Maintenance Results * HEPATITIS C AB W REFLEX TO HCV RNA BY PCR (03/08/2023 14:50 EST) Hep C Antibody Negative Negative 03/09/2023 19:[address] [facility] Blood VENOUS BLOOD / Unknown 03/08/2023 14:50 EST 03/09/2023 17:09 EST us Provider Outr Resulting Lab CHEMISTRY & BLOOD GA S ORDERABLES Final Result [facility] [address] [place] [address] from Last 3 Months or Most Recently Relevant to Health Maintenance Care Teams Blast Furnace Helper Relationship Specialty Start Date End Date Bong Valle MD PCP - General 02/21/10
--- OUTSIDE RECORDS SUMMARY | 2024-03-13 18:14 | XMS_ITS | Encounter Summary ---
Author Organization [facility] Address [address] [place] [address] Care Team Providers Care Paid Search Marketing Analyst Name Role Phone Bong Valle MD Primary Care Provider Dennis dia Encounter Details Date Type Department Care Team (Late st Contact Info) Description 03/09/2023 Lab Requisition [facility] Pathology & Laboratory Medicine - [facility] [address] [place], [place] [id number] Outr Resulting Lab, Provider Social History Tobacco [...] Comments CHLAMYDIA/N. GONORRHOEAE AMPLIFIED NUCLEIC ACID Routine 03/08/2023 14:50 EST documented in this encounter Results * CHLAMYDIA/N. GONORRHOEAE AMPLIFIED RNA (03/08/2023 14:50 EST) Neisseria gonorrhoeae Result Negative Negative 03/10/2023 14:26 EST [facility] Chlamydia trachomatis Result Negative Negative 03/10/2023 14:26 EST [facility] Urine URINE / Unknown 03/08/2023 1 4:50 EST 03/09/2023 16:55 EST Narrative [facility] - 03/10/2023 14:26 EST A first catch urine specimen is acceptable for detection of Gonorrhea and Chlamydia, but might detect up to 10% fewer infections when compared with vaginal and endocervical swab samples. us Provider Outr Resulting Lab MICROBIOLOGY - GENER AL ORDERABLES Final Result [facility] [address] [place] [address] documented in this encounter Visit Diagnoses Not on filedocumented in this encounter Care Teams Paid Search Marketing Analyst Relationship Specialty Start Date End Date Bong Valle MD PCP - General 02/21/10 documented as of this encounter
--- OUTSIDE RECORDS SUMMARY | 2024-03-13 18:14 | XMS_ITS | Encounter Summary ---
Author Organization [facility] Address [address] [place] [address] Care Team Providers Care Digital Production Manager Name Role Phone Bong Valle MD Primary Care Provider Dennis dia Encounter Details Date Type Department Care Team (Late st Contact Info) Description 06/07/2023 Lab Requisition [facility] Pathology & Laboratory Medicine - [address] [id number] Outr Resulting Lab, Provider Social History Tobacco [...] Comments CHLAMYDIA/N. GONORRHOEAE AMPLIFIED NUCLEIC ACID Routine 06/07/2023 12:24 EDT documented in this encounter Results * CHLAMYDIA/N. GONORRHOEAE AMPLIFIED RNA (06/07/2023 12:24 EDT) Neisseria gonorrhoeae Result Negative Negative 06/08/2023 14:07 EDT [facility] Chlamydia trachomatis Result Negative Negative 06/08/2023 14:07 EDT [facility] Swab VAGINAL STRUCTURE / Unknown 06/07/2023 12:24 EDT 06/07/2023 22:01 EDT us Provider Outr Resulting Lab MICROBIOLOGY - GENER AL ORDERABLES Final Result [facility] [address] [place] [address] documented in this encounter Visit Diagnoses Not on filedocumented in this encounter Care Teams Digital Production Manager Relationship Specialty Start Date End Date Bong Valle MD PCP - General 02/21/10 documented as of this encounter
--- OUTSIDE RECORDS SUMMARY | 2024-03-13 18:14 | XMS_ITS | Encounter Summary ---
Author Organization [facility] Address [facility] [place] [address] Care Team Providers Care Intermediate School Teacher Name Role Phone Leda Flores APRN Primary Care Provider [phone] Encounter Details Date Type Department Care Team (Late st Contact Info) Description 08/21/2023 Interpretation Only Radiology [address] [place] [address] [place] [address] Unknown None Social History Tobacco Use Types Packs/Day Years [...] Procedure Name Priority Date/Time Associated Diagnosis Comments DH OR ENDOSCOPY Routine 08/21/2023 documented in this encounter Results * DH OR Endoscopy (08/21/2023) Anatomical Region Laterality Modality Other 08/21/2023 Narrative 08/21/2023 12:00 AM EDT Photographs - Images Procedure Note Unknown - 08/22/2023 Photographs - Images Unknown EA IMAGES documented in this encounter Visit Diagnoses Not on filedocumented in this encounter Care Teams Intermediate School Teacher Relationship Specialty Start Date End Date Leda Flores, OFFICE WORKFORCE PLANNER [address] [place] [address] PCP - General Family Medicine 10/11/22 documented as of this encounter
--- OUTSIDE RECORDS SUMMARY | 2024-03-13 18:14 | XMS_ITS | Encounter Summary ---
[place] [address] Care Team Providers Care Health Screener Name Role Phone Bong Valle MD Primary Care Provider [phone] Reason for Visit * Reason Onset Date Comments Tachycardia 04/14/2019 Encounter Details Date Type Department Care Team (Late st Contact Info) Description 04/14/2019 Telephone [place] [id number] Faby Rae, RN Tachycardia Social History Tobacco Use Types Packs/Day Years [...] Telephone Encounter - Faby Rae RN - 04/15/2019 9:00 AM EDT ----- Message ----- From: Michelle Ocasio Sent: 03/31/2019 12:18 PM EST To: Koko Buchanan MD Subject: svt [facility] called to ask for med to be refilled and also wqanted to let you know that Rosa has had8 episodes in the last 6 weeks, she said not all have needed the med, but some have. Should she come in for a visit ? Anita [phone] +++ Rosa was last seen by Dr. Buchanan on 12/17/18: Recommendations: No further evaluation or intervention at this time. Propranolol 40 mg po PRN No limitations or restrictions in Rosa's activity. SBE precautions are not indicated based on [place] [employer] guidelines. ?? Follow-up: 3 years with electrocardiogram at that time. Sooner PRN for increased symptoms or syncope +++ ----- Message from Koko Buchaann MD sent at 04/12/2019 12:50 PM EST ----- Regarding: FW: svt Best thing for now is to find out if events are frequent enough to warrant repeating a Zio. Having her come in isn't going to help much. Falls knowing how long the episodes last and if the medication is helping the episodes terminate. Also fine to refill her med. Koko Buchanan MD +++ 04/14/19: Mother returned call. She stated that Rosa had a cluster of 5 episodes within a 4 week period. They lasted anywhere from 2 minutes to the longest one at 70 minutes. All lasting beyond 10 minutes responded to propranolol. She cannot successfully terminate episodes with vagal maneuvers.They were ontheir way to the ED for the 70 minute episode when she finally converted. She has not had any events during the last 3 weeks. +++ 04/18/19: I phoned back to Mom, leaving a message that she may call with update sif the episodes increase again. I am passing on her update to Dr. Buchanan. Flavia Mares RN * Telephone Encounter - Faby Rae RN - 04/14/2019 4:25 PM EDT Left message to call our office regarding her earlier call about Rosa. * Telephone Encounter - Faby Rae RN - 04/14/2019 4:25 PM EDT ----- Message from Koko Buchanan MD sent at 04/12/2019 12:50 PM EST ----- Regarding: FW: svt Best thing for now is to find out if events are frequent enough to warrant repeating a Zio. Having her come in isn't going to help much. Falls knowing how long the episodes last and if the medication is helping the episodes terminate. Also fine to refill her med. NB ----- Message ----- From: Michelle Ocasio Sent: 03/31/2019 12:18 PM EST To: Koko Buchanan MD Subject: svt [facility] called to ask for med to be refilled and also wqanted to let you know that Rosa has had8 episodes in the last 6 weeks, she said not all have needed the med, but some have. Should she come in for a visit ? For me Anita [phone] documented in this encounter Plan of Treatment Not on file documented as of this encounter Visit Diagnoses Not on filedocumented in this encounter Care Teams Health Screener Relationship Specialty Start Date End Date Bong Valle MD [address] [place] [address] PCP - General Pediatrics 10/05/16 06/20/21 documented as of this encounter
--- OUTSIDE RECORDS SUMMARY | 2024-03-13 18:14 | XMS_ITS | Encounter Summary ---
Author Organization [facility] Address [facility] [place] [address] Care Team Providers Care Porcelain Waxer Name Role Phone Unknown Primary Care Provider Unavailabl e Reason for Visit * Diagnostic Test (Routine) - Closed Specialty Diagnoses / Procedures Referred By Irene t Referred To Contact Cardiology Diagnoses SVT (supraventricular tachycardia) Procedures Ziopatch 48 Hrs-15 Days Koko Buchanan MD [facility] [place] [address] [facility] [place] [address] Referral ID Status Reason Start Date Expiration Date V isits Requested Visits Authorized [id number] Closed Specialty Service Requested 01/17/2022 01/17/2023 1 1 Encounter Details Date Type Department Care Team (Latest Contact Info) Description 01/19/2022 10:45 AM EST Ancillary Procedure [place] [address] Koko Buchanan MD SVT (supraventricular [...] Procedure Name Priority Date/Time Associated Diagnosis Comments ZIOPATCH 48 HRS-15 DAYS Routine 02/17/2022 8:20 AM EST SVT (supraventricular tachycardia) documented in this encounter Results * Ziopatch 48 Hrs-15 [...] Becky Zio recording shows no significant arrhythmia. Reading MD: Koko Buchanan M.D. Procedure Note Koko Buchanan [...] was not correlated with patienttriggers. Summary: Becky Bangura recording shows no significant arrhythmia. Reading MD: Koko Buchanan M.D. Koko Buchanan MD CARDIAC SERVICES ORD ERABLES documented in this encounter Visit Diagnoses Diagnosis SVT (supraventricular tachycardia) Other specified cardiac dysrhythmias documented in this encounter Care Teams Porcelain Waxer Relationship Specialty Start Date End Date Unknown None PCP - General 06/21/21 10/10/22 documented as of this encounter
--- OUTSIDE RECORDS SUMMARY | 2024-03-13 18:14 | XMS_ITS | Encounter Summary ---
[place] [address] Care Team Providers Care Casting Coordinator Name Role Phone Leonard Green MD, Bong Primary Care Provider [phone] Encounter Details Date Type Department Care Team (Late st Contact Info) Description 07/07/2016 Notes Only [place] [address] Zeenat Graff, RN Social History Tobacco Use Types Packs/Day Years Used Date Smoking Tobacco: Never Comments:NO SMOKERS IN THE H OME Sex and Gender Information Value Date Recorded Sex Assigned at Female 02/08/2023 12:59 PM EST Gender Identity Female 02/08/2023 12:59 PM EST Sexual Orientation Straight 02/08/2023 12 :59 PM EST documented as of this encounter Progress Notes * Zeenat Graff, BALTA - 07/07/2016 8:29 AM EDT 07-07-16 Medication administration form and 06-30-16 office note faxed to [facility] at [phone]. documented in this encounter Plan of Treatment Not on file documented as of this encounter Visit Diagnoses Not on filedocumented in this encounter Care Teams Casting Coordinator Relationship Specialty Start Date End Date Bong Valle MD [address] [facility] [place] [address] PCP - General 12/28/09 10/04/16 documented as of this encounter
--- OUTSIDE RECORDS SUMMARY | 2024-03-13 18:14 | XMS_ITS | Encounter Summary ---
[place] [address] Care Team Providers Care Bias Machine Operator Helper Name Role Phone Leda Flores APRN Primary Care Provider [phone] Reason for Referral * Consultation (Routine) - Duplicate Referral Specialty Diagnoses / Procedures Referred By Irene dunbar Referred To Contact Obstetrics and Gynecology Diagnoses Dysmenorrhea PROPERTY DEVELOPER ?ABOUT ENDOMETRIOSIS, VERY PAINFUL PERIODS, NO CONTROLS HELPFUL Leda Flores, COLBY [address] [place] [address] [facility] Gun Barrel Finisher [address] [place] [phone] Referral ID Status Reason Start Date Expiration Date Visits Requested Visits Authorized [id number] Duplicate Referral Consult, Test & Treat PCP Updated and/or Approved 3 01/04/2024 6 6 Encounter Details Date Type Department Care Team (Late st Contact Info) Description 01/04/2023 Transcribe Orders eDH Incoming Referrals [phone] Leda Flores APRN [address] [place], [place] [id number] Dysmenorrhea Social History Tobacco Use Types Packs/Day Years Used Date Smoking Tobacco: Never Smokeless Tobacco: Never Comments:NO SMOKERS IN THE H OME Sex and Gender Information Value Date Recorded Sex Assigned at Female 02/08/2023 12:59 PM EST Gender Identity Female 02/08/2023 12:59 PM EST Sexual Orientation Straight 02/08/2023 12 :59 PM EST documented as of this encounter Plan of Treatment Scheduled Referrals Name Type Priority Associated Diagnoses Orde r Schedule Referral to Ob-Shared Services Manager Outpatient Referral Routine Dysmenorrhea Ordered: 01/04/2023 documented as of this encounter Visit Diagnoses Diagnosis Dysmenorrhea documented in this encounter Care Teams Bias Machine Operator Helper Relationship Specialty Start Date End Date Leda Flores APRN [address] [place] [address] PCP - General Family Medicine 10/11/22 documented as of this encounter
--- OUTSIDE RECORDS SUMMARY | 2024-03-13 18:14 | XMS_ITS | Encounter Summary ---
[place] [address] Care Team Providers Care Lead Technician Name Role Phone Leonard Green MD, Bong Primary Care Provider [phone] Encounter Details Date Type Department Care Team (Late st Contact Info) Description 08/01/2016 Telephone [place] [id number] Zeenat Graff, RN Social History Tobacco Use Types Packs/Day Years Used Date Smoking Tobacco: Never Comments:NO SMOKERS IN THE H OME Sex and Gender Information Value Date Recorded Sex Assigned at Female 02/08/2023 12:59 PM EST Gender Identity Female 02/08/2023 12:59 PM EST Sexual Orientation Straight 02/08/2023 12 :59 PM EST documented as of this encounter Miscellaneous Notes * Telephone Encounter - Zeenat Graff, RN - 08/01/2016 8:56 AM EDT ----- Message from Maddi Cooper sent at 08/01/2016 8:25 AM EDT ----- Vahid Morales, called. Josephyana got a Zio at appt with Norm, and [employer] states they will not pay for it without a retro PA. Can this be done? Any questions call james Redding [phone] 08-01-16 Spoke with Father. Instructed to call our [employer] accounting tutor, Esther Bernard @ [phone]. documented in this encounter Plan of Treatment Not on file documented as of this encounter Visit Diagnoses Not on filedocumented in this encounter Care Teams Lead Technician Relationship Specialty Start Date End Date B[place] [address] PCP - General 12/28/09 10/04/16 documented as of this encounter
--- OUTSIDE RECORDS SUMMARY | 2024-03-13 18:14 | XMS_ITS | Encounter Summary ---
[place] [address] Care Team Providers Care Squeegeer And Former Name Role Phone Leda Flores APRN Primary Care Provider [phone] Reason for Visit * Auth/Cert (Routine) Specialty Diagnoses / Procedures Referred By Irene t Referred To Contact Diagnoses Dysmenorrhea in adolescent Chronic pelvic pain in female dysmenorrhea, chronic pelvic pain Procedures PRO LAP, DIAGNOSTIC ABDOMEN PRO INSERT INTRAUTERINE DEVICE LAPAROSCOPY, DIAGNOSTIC, ABDOMEN (WRVU 5.14) INSERTION OF IUD, VAGINAL APPROACH (WRVU 1.01) Sarah Dowling MD [facility] DR OBSTETRICS [place] [address] [facility] Referral ID Status Reason Start Date Expiration Date Visits Re quested Visits Authorized [id number] 1 1 Encounter Details Date Type Department Care Team (Late st Contact Info) Description 08/21/2023 12:38 PM EDT Anesthesia Event [place] [id number] Phi Cano MD [facility] [place] [address] Anesthesia Record Procedure Summary Procedure Name Responsible Anesthesiologist Anesthesia Start Time Anesthesia Stop Time LAPAROSCOPY, DIAGNOSTIC, ABDOMEN (WRVU 5.14) (Abdomen) Phi Cano MD 08/21/23 1238 08/21/23 1406 Events Date Time Event Comment 08/21/2023 1226 1238 Start 1240 AN Verify 1240 An Start Data 1248 An Induction 1250 An Intubation 1251 Anesthesia Ready 1358 Extubation/LMA Out 1400 an stop data 1404 Recovery or ICU Handoff Allegra ent care was transferred to the destination unit staff after review of the patient's medical history, current anesthetic/surgical status and plan, according to the Provider Handoff Checklist. 1406 Stop Meds Name Total propofoL 200 mg propofol INF 213.18 mg fentaNYL 100 mcg midazolam 2 mg lidocaine IV 50 mg dexAMETHasone 8 mg ondansetron 8 mg rocuronium 50 mg glycopyrrolate 0.1 mg ketorolac 30 mg dexmedeTOMIDine 4 mcg/mL 8 mcg sugammadex 200 mg BUPivacaine (pf) (Marcaine) (2.5 mg/mL) 0.25% injection 0 mL lactated ringers 900 mL * Agents Name O2 * Blood No blood administrations on file. Lines, Drains, and Airways Type Details Placement Removal Incision 08/21/23; 1312; midl ine; lower quadrant; laparoscopic punctures (specify); 3 laparoscopic pokes 08/21/23 1312 by Bhargavi Faustin RN PIV 08/21/23; 1237; 20 g auge; metacarpal vein (top of hand), right; Anatomical Landmarks; intradermal injection; 08/21/23; 1515 08/21/23 1237 by Darya Flores RN 08/21/23 1515 by Christin Gerber, RN ETT Mask Ventilation: Ea sy (1); ETT Type: Cuffed, Oral; ETT Size: 7 mm; Mac Blade: 3; Notes: Pre-O2, Stylette, Cricoid Pressure; Attempts: 1; Laryngoscopy Grade: 2; ETT Placement Verified By: Auscultation, Capnometry, Visual; Secured at Teeth: 22 cm; Inserted by: HW; Removal Date: 08/21/23; Removal Time: 1358 08/21/23 1255 by Natacha Reeder CRNA 08/21/23 1358 by Natacha Reeder CRNA NG/OG Tube 08/21/23; 1257; orog astric; 16 Fr; center mouth; Secured; clear fluid return, LCWS; 08/21/23; 1355 08/21/23 1257 by Natacha Reeder CRNA 08/21/23 1355 by Natacha Reeder CRNA documented in this encounter Social History Tobacco Use Types Packs/Day Years [...] PM EST documented as of this encounter OR Notes * Anesthesia Postprocedure Evaluation - Phi Cano MD - 08/21/2023 3:57 PM EDT Department of Anesthesiology Post-procedure Note Patient: Rosa Perez Procedure Summary Date: 08/21/23 [place] [facility] [place] [address] [place] [address] Anesthesia Start: 1238 Anesthesia Stop: 1406 Procedure: LAPAROSCOPY, DIAGNOSTIC, ABDOMEN (WRVU 5.14) (Abdomen) Diagnosis: Dysmenorrhea in adolescent Chronic pelvic pain in female (dysmenorrhea, chronic pelvic pain) Surgeons: Sarah Dowling MD Responsible Provider: Phi Cano MD Anesthesia Type: general ASA Status: 2 All Anesthesia Providers: Anesthesiologist: Phi Cano MD FOIL SPINNER: Natacha Reeder CRNA Vitals Value Taken Time BP 120/60 08/21/23 1500 Temp 36 ??C (96.8 ??F) 08/21/23 1401 Pulse 65 08/21/23 1500 Resp 19 08/21/23 1500 SpO2 99 % 08/21/23 1500 Pain Level 2 08/21/23 1500 Patient Location: PACU/[facility] Level of Consciousness: Awake and Alert Pain Management: Satisfactory Analgesia PONV: None Cardiovascular Status: At Baseline Respiratory Status: At Baseline Postoperative Fluid Status: Possible Anesthetic Complications: NONE apparent at time of evaluation Final Primary Anesthesia Type: General (The anesthetic type performed was the same as planned.) Comments: * Anesthesia Preprocedure Evaluation - Phi Cano MD - 08/20/2023 6:29 PM EDT Pre-Anesthesia Evaluation for: Rosa Perez a 17 y.o. female. Procedure(s): LAPAROSCOPY, DIAGNOSTIC, ABDOMEN (WRVU 5.14) INSERTION OF IUD, VAGINAL APPROACH (WRVU 1.01) Patient Active Problem List Diagnosis Date Noted ??? SVT (supraventricular tachycardia) ??? FHx: thyroid disease ??? Injury of finger of right hand ??? Constipation 01/05/2014 ??? Urinary tract infection 11/17/2011 Past Medical History: Diagnosis Date ??? Constipation 01/2014 ??? FHx: heart disease MGF stents in late 50s ??? FHx: thyroid disease Mother ??? Injury of finger of right hand ??? Near syncope ??? SVT (supraventricular tachycardia) ??? Urinary tract infection 11/17/2011 Past Surgical History: Procedure Laterality Date ??? TONSILLECTOMY AND ADENOIDECTOMY 11/17/2011 Social History Tobacco Use ??? Smoking status: Never ??? Smokeless tobacco: Never ??? Tobacco comments: NO SMOKERS IN THE HOME Substance Use Topics ??? Alcohol use: Not on file Social History Substance and Sexual Activity Drug Use Not on file Allergies Allergen Reactions ??? Nickel SEVERE RASH AND SWELLING Medications: MAR and/or home medications have been reviewed. Physical Exam: Preprocedure Vitals Current as of 08/20/23 1829 No BP, pulse, respiration, SpO2, or temperature recorded. Height: Weight: BMI: IBW: Airway Assessment: Mallampati: I TM distance: >3 FB Neck ROM: full Cardiovascular Assessment: system normal Pulmonary Assessment: unlabored breathing pulmonary exam normal Dental Assessment: Misc Assessment: Other exam findings: BP Readings from Last 3 Encounters: 08/21/23 : 127/65 05/08/23 : 109/57 02/08/23 : 111/75 Last Filed Perioperative Cognitive Screening None Anesthesia Plan: ASA 2 general, with a(n) intravenous induction 17 y/o female for diagnostic laparoscopy. PMH: SVT (resolves with propranolol) Allergic to nickel NPO > 4 METS Plan for GA, ETT. Informed Consent: Anesthetic plan and risks discussed with patient. Plan discussed with FOIL SPINNER. Anesthesia Screening documented in this encounter Plan of Treatment Not on file documented as of this encounter Visit Diagnoses Not on filedocumented in this encounter Administered Medications Inactive Administered Medications - up to 3 most recent administrations Medication Order MAR Action Action Date Dose Rate Site dexAMETHasone (Decadron) injection Intravenous, PRN, Starting on Sun08/21/23 at 1258, Until Sun08/21/23 at 1431, Anesthesia Intra-op, Routine Given 08/21/2023 12:58 PM EDT 8 mg dexmedeTOMIDine (Precedex) (4 mcg/mL) bolus injection (Anesthsia) Intravenous, PRN, Starting on Sun08/21/23 at 1306, Until Sun08/21/23 at 1431, Anesthesia Intra-op, Routine Given 08/21/2023 1:06 PM EDT 8 mcg fentaNYL (pf) (50 mcg/mL) multi-dose injection Intravenous, Administer over 10 Minutes, PRN, Starting on Sun08/21/23 at 1240, Until Sun08/21/23 at 1431, Anesthesia Intra-op, Routine Given 08/21/2023 1:06 PM EDT 50 mcg Given 08/21/2023 12:40 PM EDT 50 mcg glycopyrrolate (Robinul) (0.2 mg/mL) multi-dose injection Intravenous, PRN, Starting on Sun08/21/23 at 1306, Until Sun08/21/23 at 1431, Anesthesia Intra-op, Routine Given 08/21/2023 1:06 PM EDT 0.1 mg ketorolac (Toradol) (30 mg/mL) injection Intravenous, PRN, Starting on Sun08/21/23 at 1345, Until Sun08/21/23 at 1431, Anesthesia Intra-op, Routine Given 08/21/2023 1:45 PM EDT 30 mg lactated ringers infusion Intravenous, CONTINUOUS PRN, Starting on Sun08/21/23 at 1238, Until Sun08/21/23 at 1431, Anesthesia Intra-op New Bag 08/21/2023 12:38 PM EDT lidocaine (pf) (Xylocaine) (20 mg/mL) 2% injection syringe Intravenous, PRN, Starting on Sun08/21/23 at 1246, Until Sun08/21/23 at 1431, Anesthesia Intra-op, Routine Given 08/21/2023 12:46 PM EDT 50 mg midazolam (pf) (Versed) (1 mg/mL) multi-dose injection Intravenous, PRN, Starting on Sun08/21/23 at 1240, Until Sun08/21/23 at 1431, Anesthesia Intra-op, Routine Given 08/21/2023 12:40 PM EDT 2 mg ondansetron (pf) (Zofran) (2 mg/mL) injection Intravenous, PRN, Starting on Sun08/21/23 at 1306, Until Sun08/21/23 at 1431, Anesthesia Intra-op, Routine Given 08/21/2023 1:45 PM EDT 4 mg Given 08/21/2023 1:06 PM EDT 4 mg propofoL (Diprivan) (10 mg/mL) infusion Intravenous, CONTINUOUS PRN, Starting on Sun08/21/23 at 1248, Until Sun08/21/23 at 1431, Anesthesia Intra-op, Routine New Bag 08/21/2023 12:48 PM EDT 50 mcg/kg/min 22.44 mL/hr propofoL (Diprivan) 10 mg/mL bolus injection (Anesthesia) Intravenous, PRN, Starting on Sun08/21/23 at 1248, Until Sun08/21/23 at 1431, Anesthesia Intra-op Given 08/21/2023 12:48 PM EDT 200 mg rocuronium (Zemuron) (10 mg/mL) multi-dose injection Intravenous, PRN, Starting on Sun08/21/23 at 1248, Until Sun08/21/23 at 1431, Anesthesia Intra-op, Routine Given 08/21/2023 12:48 PM EDT 50 mg sugammadex (Bridion) 100 mg/mL injection Intravenous, PRN, Starting on Sun08/21/23 at 1345, Until Sun08/21/23 at 1431, Anesthesia Intra-op, Routine Given 08/21/2023 1:45 PM EDT 200 mg documented in this encounter Care Teams Squeegeer And Former Relationship Specialty Start Date End Date Leda Flores, SECURITY ASSESSOR [address] [place] [address] PCP - General Family Medicine 10/11/22 documented as of this encounter
--- OUTSIDE RECORDS SUMMARY | 2024-03-13 18:14 | XMS_ITS | Encounter Summary ---
Author Organization [facility] Address [facility] [place] [address] Care Team Providers Care Joggle Press Operator Name Role Phone Brando Faulkner MD Primary Care Provider [phone] Reason for Referral * Diagnostic Test (Routine) - Closed Specialty Diagnoses / Procedures Referred By Irene dunbar Referred To Contact Cardiology Diagnoses SVT (supraventricular tachycardia) Procedures Echocardiogram Transthoracic(Leb) Gaston Pisano MD [facility] DR PEDIATRIC [place] [address] [facility] [place] [address] Referral ID Status Reason Start Date Expiration Date V isits Requested Visits Authorized [id number] Closed Specialty Service Requested 11/20/2016 11/20/2017 1 1 Encounter Details Date Type Department Care Team (Late st Contact Info) Description 11/20/2016 Orders Only [place] [address] Gaston Pisano MD AV node reentry tachycardia Social History Tobacco Use Types Packs/Day Years [...] documented as of this encounter Results * ECHO COMPLETE (12/08/2016 12:40 PM EDT) Anatomical Region Laterality Modality Other 12/08/2016 Narrative 12/08/2016 4:07 PM EDT Procedure: ?Pediatric Echocardiogram Patient: ?FLETCHER Vázquez ?(Age): 2005(11y) ? Med Rec#: ? [id number] ?Sex: ?F ? [place] Loc: ? [facility] [place]Ht / Wt: ??165.4(cm)/77.3( Pt. Loc: ?Echo Lab ?BSA: ?1.905 ([facility]) Study Date: ?? 12/08/2016 ?Pt. Type: Study Quality: ? Referring: Gaston Pisano ([id number]) Referring: BRANDO FAULKNER J Reading: Koko Buchanan B. ([id number]) Risk Control Specialist: Echo Joel BA, [facility] Diagnosis: *ICD-10-PCS Palpitations (R00.2) *ICD-10-PCS Supraventricular tachycardia (I47.1) BP: ? 100/61 SUMMARY: 1. Normal exam. 2. No anatomic abnormality was seen with complete standard exam. 3. Left and right ventricular chamber size, wall thickness and systolic performance appear normal. 4. See remainder of report for additional findings. FINDINGS: ? 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 Venous Connections ?There are normal systemic venous connections, with the superior and inferior vena cavae returning to the right atrium. ?All four pulmonary veins drain normally to the left atrium. Atrial Septum ?There is no atrial level shunting. Atria ?The right and left atria are of normal size. Av Valves ?The tricuspid valve is normal in structure with no stenosis or regurgitation. ?The mitral valve is normal in structure with no stenosis or regurgitation. Ventricles ?The right ventricle has normal chamber size, wall thickness and systolic function. ?The left ventricle has normal chamber size, wall thickness and systolic function. Ventricular Septum ?There is no interventricular level shunting. Semilunar Valves ?The pulmonary valve is normal, with normal leaflets, no stenosis or insufficiency. ?The aortic valve is normal with three leaflets, no stenosis, or insufficiency. Aortic Pulmonary Root ?The aortic root is normal, without dilatation or stenosis. Thoracic Arteries ?The main and branch pulmonary arteries are normal in size and configuration, without narrowing or dilatation. ?There is no patent ductus arteriosus. ?The aortic arch is normal in size, intact, without narrowing, dilatation or a coarctation. ?There is a left sided aortic arch. Coronary Arteries ?The coronary arteries have normal origins, configuration and normal flow with color Doppler. Effusion ?There is no pericardial or pleural effusion noted. Chambers MM ?Value ?Units (Range) ? Z Score ? IVSd MM ? 7.33 ? mm (6.88 - 13) ?-1.7 ? LVPWd MM ?8.43 ? mm (6.77 - 11.89) ?? -0.7 ? LVEDd dim MM ?47.3 ? mm (43.69 - 58.93) ??-1.1 ? LVEDd dim MM / BSA ??26.13 ?mm/m2 ? LVEDs dim MM ?27.5 ? mm (25.88 - 40.56) ??-1.6 ? LVEDs dim MM / BSA ??15.19 ?mm/m2 ? LV FS MM ?42 ? % ? EF (Teichholz) MM ?? 73 ? % ? Chambers 2D ?Value ?Units (Range) ? Z Score ? LAs dim (AP) 2D ? 31.7 ? mm ? LAs dim (2D) / BSA ??17.51 ?mm/m2 ? LA:Ao ratio 2D ?1.17 ? ratio ? Aorta ?Value ?Units (Range) ? Z Score ? Ao root diam 2D ? 27 ? mm (22.77 - 35.21) ??-0.6 ? Ao root diam (2D) / 14.92 ?mm/m2 ? Asc Ao diam (LAX) ?? 25 ? mm (19.73 - 32.25) ??-0.3 ? All Z scores are estimated This report has been electronically signed by: Koko Buchanan MD ? 12/08/2016 16:06:51 Images reviewed and interpretation verified [facility] Cardiac Ultrasound [facility] Procedure Note Koko Buchanan MD - 12/08/2016 Procedure: Pediatric Echocardiogram Patient: FLETCHER BONILLA Gurpreet PRICE(Age): 2005(11y) Med Rec#: [id number] Sex: F [place] Loc: [facility] [place] Ht / Wt: 165.4(cm)/77.3( Pt. Loc: Echo Lab BSA: 1.905 [facility] Study Date: 12/08/2016 Pt. Type: Study Quality: Referring: Gaston Pisano ([id number]) Referring: BRANDO FAULKNER J Reading: Koko Buchanan B. ([id number]) Risk Control Specialist: Echo Joel BA, [facility] Diagnosis: *ICD-10-PCS Palpitations (R00.2) *ICD-10-PCS Supraventricular tachycardia (I47.1) BP: 100/61 SUMMARY: 1. Normal exam. 2. No anatomic abnormality was seen with complete standard exam. 3. Left and right ventricular chamber size, wall thickness and systolic performance appear normal. 4. See remainder of report for additional findings. 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 Venous Connections There are normal systemic venous connections, with the superior and inferior vena cavae returning to the right atrium. All four pulmonary veins drain normally to the left atrium. Atrial Septum There is no atrial level shunting. Atria The right and left atria are of normal size. Av Valves The tricuspid valve is normal in structure with no stenosis or regurgitation. The mitral valve is normal in structure with no stenosis or regurgitation. Ventricles The right ventricle has normal chamber size, wall thickness and systolic function. The left ventricle has normal chamber size, wall thickness and systolic function. Ventricular Septum There is no interventricular level shunting. Semilunar Valves The pulmonary valve is normal, with normal leaflets, no stenosis or insufficiency. The aortic valve is normal with three leaflets, no stenosis, or insufficiency. Aortic Pulmonary Root The aortic root is normal, without dilatation or stenosis. Thoracic Arteries The main and branch pulmonary arteries are normal in size and configuration, without narrowing or dilatation. There is no patent ductus arteriosus. The aortic arch is normal in size, intact, without narrowing, dilatation or a coarctation. There is a left sided aortic arch. Coronary Arteries The coronary arteries have normal origins, configuration and normal flow with color Doppler. Effusion There is no pericardial or pleural effusion noted. Chambers MM Value Units (Range) Z Score IVSd MM 7.33 mm (6.88 - 13) -1.7 LVPWd MM 8.43 mm (6.77 - 11.89) -0.7 LVEDd dim MM 47.3 mm (43.69 - 58.93) -1.1 LVEDd dim MM / BSA 26.13 mm/m2 LVEDs dim MM 27.5 mm (25.88 - 40.56) -1.6 LVEDs dim MM / BSA 15.19 mm/m2 LV FS MM 42 % EF (Teichholz) MM 73 % Chambers 2D Value Units (Range) Z Score LAs dim (AP) 2D 31.7 mm LAs dim (2D) / BSA 17.51 mm/m2 LA:Ao ratio 2D 1.17 ratio Aorta Value Units (Range) Z Score Ao root diam 2D 27 mm (22.77 - 35.21) -0.6 Ao root diam (2D) / 14.92 mm/m2 Asc Ao diam (LAX) 25 mm (19.73 - 32.25) -0.3 All Z scores are estimated This report has been electronically signed by: Koko Buchanan MD 12/08/2016 16:06:51 Images reviewed and interpretation verified [facility] Cardiac Ul[facility]ound [facility] Gaston Pisano MD ECHO ORDERABLES documented in this encounter Visit Diagnoses Diagnosis AV node reentry tachycardia Other specified cardiac dysrhythmias documented in this encounter Care Teams Joggle Press Operator Relationship Specialty Start Date End Date Brando Faulkner MD [address] [place] [address] PCP - General Pediatrics 10/05/16 06/20/21 documented as of this encounter
--- OUTSIDE RECORDS SUMMARY | 2024-03-13 18:14 | XMS_ITS | Encounter Summary ---
Author Organization [facility] [place] [address] Care Team Providers Care Poultry Hatchery Supervisor Name Role Phone Leda Flores APRN Primary Care Provider [phone] Reason for Visit * Auth/Cert (Routine) Specialty Diagnoses / Procedures Referred By Irene dunbar Referred To Contact Diagnoses Dysmenorrhea in adolescent Chronic pelvic pain in female dysmenorrhea, chronic pelvic pain Procedures PRO LAP, DIAGNOSTIC ABDOMEN PRO INSERT INTRAUTERINE DEVICE LAPAROSCOPY, DIAGNOSTIC, ABDOMEN (WRVU 5.14) INSERTION OF IUD, VAGINAL APPROACH (WRVU 1.01) Sarah Dowling MD [facility] [address] [facility] Referral ID Status Reason Start Date Expiration Date Visits Re quested Visits Authorized [id number] 1 1 Encounter Details Date Type Department Care Team (Late st Contact Info) Description 08/21/2023 1:05 PM EDT - 08/21/2023 2:42 PM EDT Surgery [place] [id number] Sarah Dowling MD [facility] [address] LAPAROSCOPY, DIAGNOSTIC, ABDOMEN (WRVU 5.14) Social History Tobacco Use Types Packs/Day Years [...] Sign Reading Time Taken Comments Blood Pressure 115/70 08/21/2023 2:26 PM EDT Pulse 68 08/21/2023 2:26 PM EDT Temperature 36 ??C (96.8 ??F) 08/21/2023 2:01 PM EDT Respiratory Rate 16 08/21/2023 2:26 PM EDT Oxygen Saturation 98% 08/21/2023 2:26 PM EDT Inhaled Oxygen Concentration - - Weight 74.8 kg (165 lb) 08/21/2023 12:03 PM EDT Height 172.7 cm (5' 8) 08/21/2023 12:03 PM EDT Body Mass Index 25.09 08/21/2023 12:03 PM EDT Body Mass Index Percentile 81.08% 08/21/2023 12: 03 PM EDT Growth Chart: [facility] (Girls, 2- 20 Years) documented [...] closest emergency room or call the hospital moving picture operator at [phone] and ask for physician contact center engineer covering for your physician. Questions or problems after 5pm or on a weekend: Call the [facility] moving picture operator at and ask for the physician contact center engineer covering for your doctor. At 12:20pm you [...] note were not included. PATIENT DISCHARGE INSTRUCTIONS [facility] SUPERVISOR HEADING Department: Follow Up Appointment: Future Appointments Date Time Provider Department Center 09/12/2023 11:40 AM Sarah Dowling MD [facility] Call your doctor if you develop: --A [...] Patient was seen and discussed with attending insurance assistant, Dr. Dowling. Tato Abdalla MD PGY1 08/21/23 [...] Operative Note Patient Name: Rosa Perez : [id number] MR#: [id number] Case Date: 08/21/2023 Surgeon: Surgeons and Role: [...] Dowling MD - 08/21/2023 1:08 PM EDT [facility] Operative Note Patient Name: Rosa Perez : [id number] MR#: [id number] Case Date: 08/21/2023 Surgeon: Surgeons and Role: [...] the incision. Intra-peritoneal placement was confirmed with Aramndo's water test and low initial insufflation pressure. [...] not need to include opening and closing). Sraah Dowling MD 08/21/2023 documented in this encounter Plan of Treatment Not on file documented as of this encounter Procedures Procedure Name Priority Date/Time Associated Diagnosis Comments SURGICAL PATHOLOGY REPORT Routine 08/21/2023 1:43 PM EDT SPECIMEN TO PATHOLOGY Routine 08/21/2023 1:43 PM EDT Lap, Diagnostic Abdomen ([id number]) 08/21/2023 12:40 PM EDT Dysmenorrhea in adolescent Chronic pelvic pain in female POCT URINE Routine 08/21/2023 12:17 PM EDT LAPAROSCOPY, DIAGNOSTIC Routine 08/21/2023 8:30 AM EDT Dysmenorrhea in adolescent Chronic pelvic pain in female documented in this encounter Results * Surgical Pathology Report (08/21/2023 1:43 PM EDT) Final Diagnosis [id number] ? Location: [facility] The signing pathologist has (i) examined the relevant preparation(s) for the specimen(s) and (ii) rendered or confirmed the diagnosis(es). . ?Surgical Pathology DIAGNOSIS A - Peritoneum (biopsy): ??- Fibroconnective tissue with Mullerian-type glands, stromal cells ?and thermal artifact, see discussion. Electronically signed by: ?Nik AREVALO, Fior Raines Verified: ??08/24/2023 12:54 ??Pathologist Performed at: ??-[facility] Dept. of Pathology, [place] [address] Import And Export Clerk: Alondra Lopez MD, FCAP, ??CLIA Certificate: [id number] DISCUSSION Significant thermal artifact is present; however, [...] labeled A1. ??jnr 08/24/2023 12:[address] [facility] SPECIMEN FROM PERITONEUM / Unknown 08/21/2023 1:43 PM EDT 08/21/2023 1:43 PM EDT Sarah Dowling MD PATHOLOGY/[place] [address] * Specimen to Pathology (08/21/2023 1:43 PM EDT) AP Specimen 08/21/2023 1:43 PM EDT 08/21/2023 1:[address] [facility] - 08/21/2023 1:43 PM EDT Specimen requisition ordered. ??Separate Pathology report to follow Sarah Dowling MD PATHOLOGY/CYTOLOGY ORDERABLES Performing Organization Address City/[facility]/[place] [address] * POCT urine (08/21/2023 12:17 PM EDT) POC Urine HCG Negative POC Control Internal Controls Acceptable 08/21/2023 12:1 7 PM EDT Sarah Dowling MD POINT OF CARE TEST ORDERABLES documented in this encounter Visit Diagnoses Diagnosis Dysmenorrhea in adolescent Chronic pelvic pain in female Unspecified symptom associated with female genital organs Dysmenorrhea in adolescent Chronic pelvic pain in female Unspecified symptom associated with female genital organs documented in this encounter Administered Medications Inactive Administered Medications - up to 3 most recent administrations Medication Order MAR Action Action Date Dose Rate Site acetaminophen (Tylenol) 325 mg tablet 1 dose, Starting on Sun08/21/23 at 1218, Until Sun08/21/23 at 1219, Darya Flores: cabinebettina override acetaminophen (Tylenol) tablet 975 mg 975 mg, Oral, ONCE, 1 dose, On Sun08/21/23 at 1230, Maximum dose of acetaminophen is 4,000 mg from all sources in 24 hours. When ordered for pain, acetaminophen should be given even when other ordered pain medications are indicated. , Routine Given 08/21/2023 12:19 PM EDT 975 mg BUPivacaine (pf) (Marcaine) (2.5 mg/mL) 0.25% injection PRN, Starting on Sun08/21/23 at 1322, Until Sun08/21/23 at 1717, Intra-Operative (Intra-Procedure), Routine Given 08/21/2023 1:25 PM EDT 5 mLs 19- Surgical Site Given 08/21/2023 1:22 PM EDT 5 mLs 19 - Surgical Site documented in this encounter Active and Recently [...] Routine documented in this encounter Care Teams Poultry Hatchery Supervisor Relationship Specialty Start Date End Date Leda Flores, LINE SUPERVISOR [address] [place] [address] PCP - General Family Medicine 10/11/22 documented as of this encounter
--- OUTSIDE RECORDS SUMMARY | 2024-03-13 18:14 | XMS_ITS | Encounter Summary ---
[place] [address] Care Team Providers Care Chaser Apprentice Name Role Phone Bong Valle MD Primary Care Provider [phone] Encounter Details Date Type Department Care Team (Late st Contact Info) Description 10/09/2017 Telephone [place] [phone] Zeenat Graff, RN Social History Tobacco Use Types Packs/Day Years Used Date Smoking Tobacco: Never Comments:NO SMOKERS IN THE H OME Sex and Gender Information Value Date Recorded Sex Assigned at Female 02/08/2023 12:59 PM EST Gender Identity Female 02/08/2023 12:59 PM EST Sexual Orientation Straight 02/08/2023 12 :59 PM EST documented as of this encounter Miscellaneous Notes * Telephone Encounter - Zeenat Graff RN - 10/09/2017 12:44 PM EDT ----- Message from Adriana Lobato sent at 10/04/2017 8:22 AM EDT ----- Contact: Mom Emergency action plan needed for school. Attn: [place] Nesbitt - school nurse F# [phone] 10-09-17 SVT action plan faxed to school RN documented in this encounter Plan of Treatment Not on file documented as of this encounter Visit Diagnoses Not on filedocumented in this encounter Care Teams Chaser Apprentice Relationship Specialty Start Date End Date Bong Valle MD [address] [facility] [place] [address] PCP - General Pediatrics 10/05/16 06/20/21 documented as of this encounter
--- OUTSIDE RECORDS SUMMARY | 2024-03-13 18:14 | XMS_ITS | Encounter Summary ---
Author Organization [facility] Address [address] [place] [address] Care Team Providers Care Irrigation Laborer Name Role Phone Bong Valle MD Primary Care Provider Dennis dia Encounter Details Date Type Department Care Team (Late st Contact Info) Description 03/09/2023 Lab Requisition [facility] Pathology & Laboratory Medicine - [facility] [address], [place] [id number] Outr Resulting Lab, Provider Social History Tobacco [...] Procedure Name Priority Date/Time Associated Diagnosis Comments HIV 1/2 ANTIGEN AND ANTIBODY, 4TH GENERATION Routine 03/08/2023 14:50 EST documented in this encounter Results * HIV 1/2 ANTIGEN AND ANTIBODY, 4TH GENERATION (03/08/2023 14:50 EST) HIV 1 and 2 Antibody/p24 Antigen, 4th Generation Negative Negative 03/09/2023 19:09 EST [facility] Comment:If acute HIV-1 infec tion is suspected in a high risk patient, submit plasma specimen for HIV-1 RNA quantitation test. Blood VENOUS BLOOD / Unknown 03/08/2023 14:50 EST 03/09/2023 17:09 EST Narrative [facility] - 03/09/2023 19:09 EST Fourth Generation assay performed on the Siemens Oktalogicaur XPT. us Provider Outr Resulting Lab IMMUNOLOGY AND SEROL OGY ORDERABLES Final Result [facility] [address] [place] [address] documented in this encounter Visit Diagnoses Not on filedocumented in this encounter Care Teams Irrigation Laborer Relationship Specialty Start Date End Date Bong Valle MD PCP - General 02/21/10 documented as of this encounter
--- OUTSIDE RECORDS SUMMARY | 2024-03-13 18:14 | XMS_ITS | Encounter Summary ---
Author Organization [facility] Address [address] [place] [address] Care Team Providers Care Knuckle Strap Sewer Name Role Phone Bong Valle MD Primary Care Provider Dennis dia Encounter Details Date Type Department Care Team (Late st Contact Info) Description 03/30/2021 Lab Requisition [facility] Pathology & Laboratory Medicine - [address] [id number] Outr Resulting Lab, Provider Social History Tobacco [...] Comments CHLAMYDIA/N. GONORRHOEAE AMPLIFIED NUCLEIC ACID Routine 03/30/2021 11:00 EST documented in this encounter Results * CHLAMYDIA/N. GONORRHOEAE AMPLIFIED RNA (03/30/2021 11:00 EST) Neisseria gonorrhoeae Result Negative Negative 04/01/2021 15:15 EST [facility] Chlamydia trachomatis Result Negative Negative 04/01/2021 15:15 EST [facility] Urine URINE / Unknown 03/30/2021 1 1:00 EST 03/31/2021 19:00 EST Narrative [facility] - 04/01/2021 15:15 EST A first catch urine specimen is acceptable for detection of Gonorrhea and Chlamydia, but might detect up to 10% fewer infections when compared with vaginal and endocervical swab samples. us Provider Outr Resulting Lab MICROBIOLOGY - GENER AL ORDERABLES Final Result [facility] [address] [place] [address] documented in this encounter Visit Diagnoses Not on filedocumented in this encounter Care Teams Knuckle Strap Sewer Relationship Specialty Start Date End Date Bong Valle MD PCP - General 02/21/10 documented as of this encounter
--- OUTSIDE RECORDS SUMMARY | 2024-03-13 18:14 | XMS_ITS | Encounter Summary ---
Author Organization [facility] Address [facility] [place] [address] Care Team Providers Care Customer Program Specialist Name Role Phone Leda Flores APRN Primary Care Provider [phone] Encounter Details Date Type Department Care Team (Latest Contact Info) Description 02/08/2023 Travel Social History Tobacco Use Types Packs/Day [...] on filedocumented in this encounter Care Teams Customer Program Specialist Relationship Specialty Start Date End Date Leda Flores, [place] [address] PCP - General Family Medicine 10/11/22 documented as of this encounter
--- OUTSIDE RECORDS SUMMARY | 2024-03-13 18:14 | XMS_ITS | Encounter Summary ---
Author Organization [facility] Address [address] [place] [address] Care Team Providers Care Test Conductor Name Role Phone Bong Valle MD Primary Care Provider Dennis dia Encounter Details Date Type Department Care Team (Late st Contact Info) Description 09/19/2022 Lab Requisition [facility] Pathology & Laboratory Medicine - [address] [address] Outr Resulting Lab, Provider Social History Tobacco [...] Comments CHLAMYDIA/N. GONORRHOEAE AMPLIFIED NUCLEIC ACID Routine 09/19/2022 13:30 EDT documented in this encounter Results * CHLAMYDIA/N. GONORRHOEAE AMPLIFIED RNA (09/19/2022 13:30 EDT) Neisseria gonorrhoeae Result Negative Negative 09/20/2022 13:13 EDT [facility] Chlamydia trachomatis Result Negative Negative 09/20/2022 13:13 EDT [facility] Swab ENDOCERVICAL STRUCTURE / Unknown 09/19/2022 13:30 EDT 09/19/2022 22:34 EDT us Provider Outr Resulting Lab MICROBIOLOGY - GENER AL ORDERABLES Final Result [facility] [address] [place] [address] documented in this encounter Visit Diagnoses Not on filedocumented in this encounter Care Teams Test Conductor Relationship Specialty Start Date End Date Bong Valle MD PCP - General 02/21/10 documented as of this encounter
--- OUTSIDE RECORDS SUMMARY | 2024-03-13 18:14 | XMS_ITS | Encounter Summary ---
Author Organization [facility] Address [facility] [place] [address] Care Team Providers Care Patient Case Coordinator Name Role Phone Leda Flores APRN Primary Care Provider [phone] Encounter Details Date Type Department Care Team (Latest Contact Info) Description 05/08/2023 Travel Social History Tobacco Use Types Packs/Day [...] on filedocumented in this encounter Care Teams Patient Case Coordinator Relationship Specialty Start Date End Date Leda Flores, [place] [address] PCP - General Family Medicine 10/11/22 documented as of this encounter
--- OUTSIDE RECORDS SUMMARY | 2024-03-13 18:14 | XMS_ITS | Encounter Summary ---
[place] [address] Care Team Providers Care Paper Cup Machine Tender Name Role Phone Unknown Primary Care Provider Unavailabl e Encounter Details Date Type Department Care Team (Late st Contact Info) Description 01/09/2022 Orders Only [place] [phone] Koko Cuellar MD SVT (supraventricular tachycardia) Social [...] documented as of this encounter Results * EKG 12 Lead (01/17/2022 9:24 AM EST) Ventricular rate 63 BPM MUSE SYSTEM Atrial Rate 63 BPM MUSE SYSTEM P-R Interval 114 ms MUSE SYSTEM QRS Duration 102 ms MUSE SYSTEM Q-T Interval 420 ms MUSE SYSTEM QTC Calculated (Bezet) 429 ms MUSE SYSTEM Calculated P [place] 72 degrees MUSE SYSTEM Calculated R [place] 72 degrees MUSE SYSTEM Calculated T [place] 47 degrees MUSE SYSTEM INTERPRETATION Normal sinus rhythm with sinus arrhythmia Normal ECG When compared with ECG of 17-DEC-2018 10:34, No significant change was found Confirmed by MD CUELLAR NORMAN ([id number]) on 01/17/2022 11:03:39 AM MUSE SYSTEM 01/17/2022 9:24 AM EST 01/17/2022 11:03 AM EST Koko Cuellar MD ECG ORDERABLES MUSE SYSTEM documented in this encounter Visit Diagnoses Diagnosis SVT (supraventricular tachycardia) Other specified cardiac dysrhythmias documented in this encounter Care Teams Paper Cup Machine Tender Relationship Specialty Start Date End Date Unknown None PCP - General 06/21/21 10/10/22 documented as of this encounter
== END 2024-03-13 18:12 | disposition home or self-care (01) ==
LOC: LBN 18:11
PROVIDERS: Visit Provider Physician Assistant Medical
DX: J02.9 Acute pharyngitis, unspecified (principal)
CPT/HCPCS: 87070